=== PATIENT | female | born 1935 | race African-American/Black ===

== ENCOUNTER 2017-08-26 15:51 | Inpatient (IN) | payer MEDICARE, MEDICAID ==
[~2017-08-26] VITALS: Ht 157.5 cm; Wt 100.0 kg
[~2017-08-26 15:51] MED LIST: FERR325T35 PO; FURO-150 PO; HYDR50TA3 PO; INSU100V12 SQ; INSU100V37 SQ; METO50TA17 PO; POTA8TAB3 PO
[2017-08-26] MEDS: labetalol 20mg/4ml (5mg/ml) syringe IV ONE ×2 (16:40→17:57)
[2017-08-26] MEDS ORDERED: ipratropium/albuterol 3ml nebule NEB ONE (16:40)
[2017-08-26 17:09] LABS: BASOPHILS % (AUTO) 0.3 % (0-1); EOSINOPHILS # (AUTO) 0.2 X10'3 (0-0.9); EOSINOPHILS % (AUTO) 2.2 % (0-6); HEMATOCRIT 30.8 % (35.0-45.0); HEMOGLOBIN 9.9 g/dl (12.0-16.0); LYMPHOCYTES # (AUTO) 0.7 X10'3 (1.1-4.8); LYMPHOCYTES % (AUTO) 8.3 % (21-51); MEAN CORPUSCULAR HEMOGLOBIN 22.6 PG (27.0-31.0); MEAN CORPUSCULAR HGB CONC 32.1 % (33.0-36.5); MEAN CORPUSCULAR VOLUME 70.3 FL (78-98); MONOCYTES # (AUTO) 0.7 X10'3 (0-0.9); MONOCYTES % (AUTO) 7.7 % (2-12); NEUTROPHILS # (AUTO) 7.3 X10'3 (1.8-7.7); NEUTROPHILS % (AUTO) 81.5 % (42-75); PLATELET COUNT 359 X10'3 (140-440); RED BLOOD COUNT 4.39 X10'6 (4.20-5.60); RED CELL DISTRIBUTION WIDTH 19.3 % (11.5-14.5)
[2017-08-26 17:19] LABS: PARTIAL THROMBOPLASTIN TIME 33 SECONDS (22-32); PROTHROMBIN TIME 10.7 SECONDS (9.0-12.0)
[2017-08-26 17:36] LABS: ALANINE AMINOTRANSFERASE 40 U/L (12-78); ALBUMIN 2.7 G/DL (3.4-5.0); ALBUMIN/GLOBULIN RATIO 0.5 (1.1-1.5); ALKALINE PHOSPHATASE 137 IU/L (46-116); ANION GAP 9 (8-16); ASPARTATE AMINO TRANSFERASE 29 U/L (10-37); BILIRUBIN,TOTAL 0.7 MG/DL (0.1-1.0); BLOOD UREA NITROGEN 19 MG/DL (7-18); BUN/CREATININE RATIO 11.5 (6.6-38.0); CALCIUM 8.9 MG/DL (8.5-10.1); CHLORIDE 104 MMOL/L (99-107); CREATININE 1.65 MG/DL (0.40-0.90); GLUCOSE 104 MG/DL (70-104); POTASSIUM 4.1 MMOL/L (3.5-5.1); SODIUM 139 MMOL/L (135-145); TOTAL CARBON DIOXIDE 26.1 MMOL/L (24-32); TOTAL PROTEIN 8.3 G/DL (6.4-8.2); eGFR 36 ML/MIN
[2017-08-26] MEDS ORDERED: furosemide 10 MG/1 ML 10ml inj IV ONE (17:45)
[2017-08-26] MEDS: nitroGLYCERIN-Tridil 50MG/D5W 250 ML IV SCH (18:33)
[2017-08-26] MEDS ORDERED: enalaprilat dihydrate 2.5mg/2ml vial IV ONE (20:45)
[2017-08-26] MEDS ORDERED: acetaminophen 325mg tablet PO PRN (22:55)
[2017-08-26] MEDS ORDERED: magnesium hydroxide 30ml (MOM) UD suspension PO PRN (22:55)
[2017-08-26] MEDS ORDERED: dextrose 50%-water 50ml dispensing syringe IV PRN ×2 (22:55)
[2017-08-26] MEDS ORDERED: regadenoson 0.4mg/5ml syringe IV ONE (22:55)
[2017-08-26] MEDS ORDERED: dextrose ORAL solution 15 GM/59 ML bottle PO PRN ×2 (22:55)
[2017-08-26] MEDS ORDERED: ondansetron/PF 4mg/2ml inj IV PRN (22:55)
[2017-08-26] MEDS ORDERED: glucagon, human recombinant 1mg kit SUBCUT PRN (22:55)
[2017-08-26] MEDS ORDERED: MESSAGE TO PHARMACY PO ONE (22:55)
[2017-08-26] MEDS ORDERED: mag hydrox/Alum hydrox/simeth 30ml oral suspension PO PRN (22:55)
[2017-08-26] MEDS ORDERED: metoprolol tartrate 1mg/ml inj IV PRN (22:55)
[2017-08-26] MEDS ORDERED: nitroGLYCERIN 0.4mg SUBLingual tab SL PRN (22:55)
[2017-08-26] MEDS ORDERED: aminophylline 250mg/10ml inj. IV PRN (22:55)
[2017-08-26] MEDS ORDERED: heparin 10,000 units/1 ML INJ IV PRN (23:05)
[2017-08-26] MEDS ORDERED: heparin 10,000 units/1 ML INJ IV ONE (23:28)
[2017-08-26 23:43] LABS: BASOPHILS % (AUTO) 0.4 % (0-1); EOSINOPHILS # (AUTO) 0.3 X10'3 (0-0.9); EOSINOPHILS % (AUTO) 3.6 % (0-6); HEMATOCRIT 27.6 % (35.0-45.0); HEMOGLOBIN 8.9 g/dl (12.0-16.0); LYMPHOCYTES # (AUTO) 1.1 X10'3 (1.1-4.8); MEAN CORPUSCULAR HEMOGLOBIN 22.5 PG (27.0-31.0); MEAN CORPUSCULAR HGB CONC 32.5 % (33.0-36.5); MEAN CORPUSCULAR VOLUME 69.2 FL (78-98); MEAN PLATELET VOLUME 7.8 FL (7.4-10.4); MONOCYTES # (AUTO) 0.8 X10'3 (0-0.9); NEUTROPHILS # (AUTO) 6.2 X10'3 (1.8-7.7); PLATELET COUNT 359 X10'3 (140-440); RED BLOOD COUNT 3.99 X10'6 (4.20-5.60); RED CELL DISTRIBUTION WIDTH 18.8 % (11.5-14.5); WHITE BLOOD COUNT 8.4 X10'3 (4.5-11.0)
[2017-08-26 23:52] LABS: HEMOGLOBIN A1C 6.9 % (4.5-6.2)
[2017-08-26 23:53] LABS: INR 1.1 INR; PARTIAL THROMBOPLASTIN TIME 32 SECONDS (22-32)
[2017-08-27] VITALS (17 sets, daily range): BP systolic 141–216; BP diastolic 47–92
[2017-08-27 00:40] LABS: PLATELET ESTIMATE NORMAL
[2017-08-27 00:42] LABS: ANISOCYTOSIS 2+; HYPOCHROMASIA 1+; MICROCYTOSIS 2+
[2017-08-27 00:43] LABS: TARGET CELLS FEW
[2017-08-27 05:49] LABS: ALANINE AMINOTRANSFERASE 31 U/L (12-78); ALBUMIN 2.3 G/DL (3.4-5.0); ALBUMIN/GLOBULIN RATIO 0.5 (1.1-1.5); ALKALINE PHOSPHATASE 127 IU/L (46-116); ANION GAP 9 (8-16); ASPARTATE AMINO TRANSFERASE 27 U/L (10-37); BILIRUBIN,TOTAL 0.8 MG/DL (0.1-1.0); BLOOD UREA NITROGEN 20 MG/DL (7-18); BUN/CREATININE RATIO 10.9 (6.6-38.0); CALCIUM 8.6 MG/DL (8.5-10.1); CHLORIDE 106 MMOL/L (99-107); CHOL/HDL RATIO 2.7 (0.00-4.99); CHOLESTEROL 121 MG/DL (0-200); CREATININE 1.83 MG/DL (0.40-0.90); GLUCOSE 220 MG/DL (70-104); HDL CHOLESTEROL 45 MG/DL (35-60); LDL CHOLESTEROL 67 MG/DL (50-100); POTASSIUM 4.1 MMOL/L (3.5-5.1); SODIUM 141 MMOL/L (135-145); TOTAL PROTEIN 7.4 G/DL (6.4-8.2); TRIGLYCERIDES 50 MG/DL (20-135); eGFR 32 ML/MIN
[2017-08-27 05:55] LABS: BASOPHILS % (AUTO) 0.1 % (0-1); EOSINOPHILS # (AUTO) 0.2 X10'3 (0-0.9); EOSINOPHILS % (AUTO) 1.8 % (0-6); HEMATOCRIT 27.3 % (35.0-45.0); HEMOGLOBIN 8.8 g/dl (12.0-16.0); LYMPHOCYTES # (AUTO) 0.9 X10'3 (1.1-4.8); LYMPHOCYTES % (AUTO) 10.3 % (21-51); MEAN CORPUSCULAR HEMOGLOBIN 22.8 PG (27.0-31.0); MEAN CORPUSCULAR HGB CONC 32.3 % (33.0-36.5); MEAN CORPUSCULAR VOLUME 70.5 FL (78-98); MEAN PLATELET VOLUME 8.9 FL (7.4-10.4); MONOCYTES # (AUTO) 0.6 X10'3 (0-0.9); MONOCYTES % (AUTO) 6.3 % (2-12); NEUTROPHILS # (AUTO) 7.5 X10'3 (1.8-7.7); NEUTROPHILS % (AUTO) 81.5 % (42-75); PLATELET COUNT 334 X10'3 (140-440); RED BLOOD COUNT 3.87 X10'6 (4.20-5.60); RED CELL DISTRIBUTION WIDTH 17.6 % (11.5-14.5); WHITE BLOOD COUNT 9.2 X10'3 (4.5-11.0)
[2017-08-27] MEDS: nitroGLYCERIN-Tridil 50MG/D5W 250 ML IV SCH (07:13)
[2017-08-27] MEDS: hydrALAZINE 20mg/ml inj. IV PRN (07:31)
[2017-08-27] MEDS: ferrous sulfate 325mg tablet PO SCH (07:36)
[2017-08-27] MEDS: metoprolol tartrate 50mg tablet PO SCH (07:36)
[2017-08-27] MEDS ORDERED: HYDROchlorothiazide 25mg tablet PO SCH (08:00)
[2017-08-27] MEDS: insulin Lispro (HumaLOG) vial - multi-dose SQ SCH ×3 (09:25→19:08)
[2017-08-27] MEDS ORDERED: furosemide 10 MG/1 ML 10ml inj IV ONE (11:00)
[2017-08-27] MEDS ORDERED: cloNIDine 0.1 mg tablet PO ONE (11:00)
[2017-08-27 13:17] LABS: MAGNESIUM 1.7 MG/DL (1.5-2.4)
[2017-08-27 19:51] LABS: TROPONIN I 0.08 NG/ML (0.0-0.05)
[2017-08-27] MEDS: insulin glargine (Lantus) pen - multi-dose SQ SCH (21:45)
[2017-08-28] VITALS (19 sets, daily range): BP systolic 139–194; BP diastolic 47–96
[2017-08-28 02:36] LABS: BASOPHILS % (AUTO) 0.6 % (0-1); EOSINOPHILS # (AUTO) 0.2 X10'3 (0-0.9); EOSINOPHILS % (AUTO) 3.1 % (0-6); HEMATOCRIT 25.1 % (35.0-45.0); HEMOGLOBIN 8.1 g/dl (12.0-16.0); LYMPHOCYTES # (AUTO) 1.2 X10'3 (1.1-4.8); MEAN CORPUSCULAR HEMOGLOBIN 22.7 PG (27.0-31.0); MEAN CORPUSCULAR HGB CONC 32.3 % (33.0-36.5); MEAN CORPUSCULAR VOLUME 70.1 FL (78-98); MONOCYTES % (AUTO) 13.3 % (2-12); NEUTROPHILS # (AUTO) 4.9 X10'3 (1.8-7.7); PLATELET COUNT 325 X10'3 (140-440); RED BLOOD COUNT 3.58 X10'6 (4.20-5.60); RED CELL DISTRIBUTION WIDTH 19.4 % (11.5-14.5); WHITE BLOOD COUNT 7.3 X10'3 (4.5-11.0)
[2017-08-28 02:52] LABS: ALANINE AMINOTRANSFERASE 28 U/L (12-78); ALBUMIN/GLOBULIN RATIO 0.4 (1.1-1.5); ALKALINE PHOSPHATASE 109 IU/L (46-116); ANION GAP 8 (8-16); ASPARTATE AMINO TRANSFERASE 27 U/L (10-37); BILIRUBIN,TOTAL 0.7 MG/DL (0.1-1.0); BLOOD UREA NITROGEN 24 MG/DL (7-18); CALCIUM 8.5 MG/DL (8.5-10.1); CHLORIDE 107 MMOL/L (99-107); GLUCOSE 176 MG/DL (70-104); POTASSIUM 3.6 MMOL/L (3.5-5.1); SODIUM 143 MMOL/L (135-145); TOTAL CARBON DIOXIDE 28.3 MMOL/L (24-32); TOTAL PROTEIN 6.8 G/DL (6.4-8.2); eGFR 29 ML/MIN
[2017-08-28] MEDS: hydrALAZINE 20mg/ml inj. IV PRN ×2 (04:26→10:46)
[2017-08-28] MEDS: ferrous sulfate 325mg tablet PO SCH (07:22)
[2017-08-28] MEDS: metoprolol tartrate 50mg tablet PO SCH (07:22)
[2017-08-28] MEDS: pantoprazole 40mg Tablet.DR PO SCH (07:23)
[2017-08-28] MEDS: cloNIDine 0.1 mg tablet PO SCH ×3 (07:23→21:50)
[2017-08-28] MEDS: aspirin 81mg tab.chew PO SCH (08:46)
[2017-08-28] MEDS: insulin Lispro (HumaLOG) vial - multi-dose SQ SCH ×2 (08:49→20:38)
[2017-08-28] MEDS ORDERED: aminophylline inj. 10 ML IV ONE (10:04)
[2017-08-28] MEDS ORDERED: regadenoson 0.4mg/5ml syringe IV ONE (10:04)
[2017-08-28] MEDS: insulin glargine (Lantus) pen - multi-dose SQ SCH (21:50)
[2017-08-28] MEDS: furosemide 20 MG/2 ML vial IV SCH (21:51)
[2017-08-29 03:00] VITALS: BP 158/54
[2017-08-29 05:21] LABS: BASOPHILS % (AUTO) 0.3 % (0-1); EOSINOPHILS # (AUTO) 0.1 X10'3 (0-0.9); EOSINOPHILS % (AUTO) 1.9 % (0-6); HEMATOCRIT 24.8 % (35.0-45.0); HEMOGLOBIN 7.9 g/dl (12.0-16.0); LYMPHOCYTES # (AUTO) 0.8 X10'3 (1.1-4.8); LYMPHOCYTES % (AUTO) 10.7 % (21-51); MEAN CORPUSCULAR HEMOGLOBIN 22.3 PG (27.0-31.0); MEAN CORPUSCULAR VOLUME 69.7 FL (78-98); MEAN PLATELET VOLUME 8.1 FL (7.4-10.4); MONOCYTES % (AUTO) 13.3 % (2-12); NEUTROPHILS # (AUTO) 5.6 X10'3 (1.8-7.7); NEUTROPHILS % (AUTO) 73.8 % (42-75); PLATELET COUNT 296 X10'3 (140-440); RED BLOOD COUNT 3.55 X10'6 (4.20-5.60); WHITE BLOOD COUNT 7.5 X10'3 (4.5-11.0)
[2017-08-29 06:00] VITALS: BP 166/76
[2017-08-29 06:02] LABS: ALANINE AMINOTRANSFERASE 24 U/L (12-78); ALBUMIN 1.9 G/DL (3.4-5.0); ALBUMIN/GLOBULIN RATIO 0.4 (1.1-1.5); ALKALINE PHOSPHATASE 95 IU/L (46-116); ANION GAP 6 (8-16); ASPARTATE AMINO TRANSFERASE 17 U/L (10-37); BILIRUBIN,TOTAL 0.4 MG/DL (0.1-1.0); BLOOD UREA NITROGEN 28 MG/DL (7-18); BUN/CREATININE RATIO 13.5 (6.6-38.0); CALCIUM 8.3 MG/DL (8.5-10.1); CHLORIDE 107 MMOL/L (99-107); CREATININE 2.08 MG/DL (0.40-0.90); GLUCOSE 123 MG/DL (70-104); POTASSIUM 3.6 MMOL/L (3.5-5.1); SODIUM 142 MMOL/L (135-145); TOTAL CARBON DIOXIDE 28.9 MMOL/L (24-32); TOTAL PROTEIN 6.5 G/DL (6.4-8.2); eGFR 28 ML/MIN
[2017-08-29 06:50] LABS: PLATELET ESTIMATE NORMAL
[2017-08-29 06:51] LABS: ANISOCYTOSIS 2+; MICROCYTOSIS 2+; POIKILOCYTOSIS 1+; POLYCHROMASIA FEW; TARGET CELLS FEW
[2017-08-29] MEDS: nitroGLYCERIN 0.4mg/hour patch TD SCH (08:00)
[2017-08-29] MEDS: ferrous sulfate 325mg tablet PO SCH (08:27)
[2017-08-29] MEDS: metoprolol tartrate 50mg tablet PO SCH (08:27)
[2017-08-29] MEDS: cloNIDine 0.1 mg tablet PO SCH ×3 (08:29→20:53)
[2017-08-29] MEDS: pantoprazole 40mg Tablet.DR PO SCH (08:30)
[2017-08-29] MEDS: aspirin 81mg tab.chew PO SCH (08:30)
[2017-08-29] MEDS: furosemide 20 MG/2 ML vial IV SCH ×2 (08:31→19:24)
[2017-08-29] MEDS: insulin Lispro (HumaLOG) vial - multi-dose SQ SCH ×3 (08:40→19:24)
[2017-08-29 11:00] VITALS: BP 161/61
[2017-08-29 15:00] VITALS: BP 140/53
[2017-08-29 19:00] VITALS: BP 145/80
[2017-08-29] MEDS: insulin glargine (Lantus) pen - multi-dose SQ SCH (20:53)
[2017-08-29 23:00] VITALS: BP 156/66
[2017-08-30] VITALS (7 sets, daily range): BP systolic 149–187; BP diastolic 45–74
[2017-08-30 05:45] LABS: BASOPHILS % (AUTO) 0 % (0-1); EOSINOPHILS # (AUTO) 0.3 X10'3 (0-0.9); EOSINOPHILS % (AUTO) 3.6 % (0-6); HEMATOCRIT 25.8 % (35.0-45.0); HEMOGLOBIN 8.5 g/dl (12.0-16.0); LYMPHOCYTES # (AUTO) 1.3 X10'3 (1.1-4.8); LYMPHOCYTES % (AUTO) 16.4 % (21-51); MEAN CORPUSCULAR HEMOGLOBIN 22.7 PG (27.0-31.0); MEAN CORPUSCULAR HGB CONC 32.9 % (33.0-36.5); MONOCYTES # (AUTO) 0.8 X10'3 (0-0.9); MONOCYTES % (AUTO) 10.6 % (2-12); NEUTROPHILS # (AUTO) 5.4 X10'3 (1.8-7.7); NEUTROPHILS % (AUTO) 69.4 % (42-75); PLATELET COUNT 319 X10'3 (140-440); RED BLOOD COUNT 3.74 X10'6 (4.20-5.60); RED CELL DISTRIBUTION WIDTH 19.3 % (11.5-14.5); WHITE BLOOD COUNT 7.8 X10'3 (4.5-11.0)
[2017-08-30 05:49] LABS: ALANINE AMINOTRANSFERASE 21 U/L (12-78); ALBUMIN/GLOBULIN RATIO 0.4 (1.1-1.5); ALKALINE PHOSPHATASE 100 IU/L (46-116); ANION GAP 7 (8-16); ASPARTATE AMINO TRANSFERASE 15 U/L (10-37); BILIRUBIN,TOTAL 0.4 MG/DL (0.1-1.0); BLOOD UREA NITROGEN 32 MG/DL (7-18); CALCIUM 8.3 MG/DL (8.5-10.1); CHLORIDE 104 MMOL/L (99-107); CREATININE 2.13 MG/DL (0.40-0.90); GLUCOSE 134 MG/DL (70-104); POTASSIUM 3.8 MMOL/L (3.5-5.1); SODIUM 139 MMOL/L (135-145); TOTAL CARBON DIOXIDE 28.5 MMOL/L (24-32); eGFR 27 ML/MIN
[2017-08-30] MEDS: nitroGLYCERIN 0.4mg/hour patch TD SCH (08:00)
[2017-08-30] MEDS: aspirin 81mg tab.chew PO SCH (08:20)
[2017-08-30] MEDS: ferrous sulfate 325mg tablet PO SCH (08:20)
[2017-08-30] MEDS: cloNIDine 0.1 mg tablet PO SCH ×3 (08:21→20:25)
[2017-08-30] MEDS: metoprolol tartrate 50mg tablet PO SCH (08:21)
[2017-08-30] MEDS: pantoprazole 40mg Tablet.DR PO SCH (08:21)
[2017-08-30] MEDS: furosemide 20 MG/2 ML vial IV SCH ×2 (08:21→20:25)
[2017-08-30] MEDS: insulin Lispro (HumaLOG) vial - multi-dose SQ SCH ×3 (08:29→18:43)
[2017-08-30 11:56] LABS: ANISOCYTOSIS 2+; HYPOCHROMASIA 2+; MICROCYTOSIS 2+; PLATELET ESTIMATE NORMAL; POIKILOCYTOSIS 1+; POLYCHROMASIA FEW; TARGET CELLS FEW
[2017-08-30 11:57] LABS: SCHISTOCYTES FEW
[2017-08-30] MEDS: hydrALAZINE 20mg/ml inj. IV PRN (19:20)
[2017-08-30] MEDS: insulin glargine (Lantus) pen - multi-dose SQ SCH (20:36)
[2017-08-31 02:00] VITALS: BP_SYST 106; BP_SYST 181; BP_DIAS 50; BP_DIAS 55
[2017-08-31] MEDS: hydrALAZINE 20mg/ml inj. IV PRN (02:08)
[2017-08-31 04:30] VITALS: BP 160/65
[2017-08-31 06:00] VITALS: BP 189/61
[2017-08-31] MEDS: aspirin 81mg tab.chew PO SCH (07:16)
[2017-08-31] MEDS: pantoprazole 40mg Tablet.DR PO SCH (07:16)
[2017-08-31] MEDS: cloNIDine 0.1 mg tablet PO SCH ×2 (07:16→13:07)
[2017-08-31] MEDS: furosemide 20 MG/2 ML vial IV SCH (07:18)
[2017-08-31] MEDS: metoprolol tartrate 50mg tablet PO SCH (07:19)
[2017-08-31] MEDS: ferrous sulfate 325mg tablet PO SCH (07:22)
[2017-08-31] MEDS: nitroGLYCERIN 0.4mg/hour patch TD SCH (07:37)
[2017-08-31] MEDS ORDERED: albuterol 2.5 MG/3 ML nebule NEB PRN (09:20)
[2017-08-31] MEDS: insulin Lispro (HumaLOG) vial - multi-dose SQ SCH ×2 (09:34→13:12)
[2017-08-31 11:00] VITALS: BP 165/55
== END 2017-08-31 14:30 | DRG 291 ==
LOC: ER 15:51 → ED HOLD 22:53 → PCU 3S 08-27 00:36
PROVIDERS: ADMIT Family Medicine; ATTEND Family Medicine
PROC: 4A02XM4 Measurement of Cardiac Total Activity, External Approach (ICD-10-PCS; principal; 2017-08-28)
PROC: 3E073KZ Introduction of Other Diagnostic Substance into Coronary Artery, Percutaneous Approach (ICD-10-PCS; 2017-08-28)
DX: I11.0 Hypertensive heart disease with heart failure (principal); J96.01 Acute respiratory failure with hypoxia; I16.1 Hypertensive emergency; E11.9 Type 2 diabetes mellitus without complications; F03.90 Unspecified dementia, unspecified severity, without behavioral disturbance, psychotic disturbance, mood disturbance, and anxiety; I50.33 Acute on chronic diastolic (congestive) heart failure; I16.0 Hypertensive urgency; G89.29 Other chronic pain; M54.9 Dorsalgia, unspecified; R74.8 Abnormal levels of other serum enzymes; Z79.899 Other long term (current) drug therapy; Z79.4 Long term (current) use of insulin
CPT/HCPCS: 36415; 71045; 78452; 80053; 80061; 82948; 83036; 83690; 83735; 83880; 84484; 85025; 85610; 85730; 87070; 93005; 93017; 93306; 94640; 94760; 96374; 96375; 97116; 97162; 97530; 99285; A4315; A9500; J0280; J0360; J1644; J1815; J1940; J3490; J7030

== ENCOUNTER 2018-01-08 21:54 | Inpatient (IN) | payer MEDICARE, MEDICAID ==
[~2018-01-08] VITALS: Ht 160 cm; Wt 112.6 kg
[2018-01-08] MEDS ORDERED: methylPREDNISolone sod succ 125mg/2ml vial IV ONE (22:05)
[2018-01-08] MEDS ORDERED: furosemide 10 MG/1 ML 10ml inj IV ONE (22:05)
[2018-01-08 22:26] LABS: ABG BASE EXCESS -4.6 mmol/L (-2.0-3.0); ABG HCO3 22.1 mmol/L (22.0-26.0); ABG OXYGEN SATURATION 93.8 % (95-98); ABG PCO2 (T) 45.6 mmHg (32.0-45.0); ABG PH (T) 7.299 (7.350-7.450); ABG PO2 (T) 73.2 mmHg (83-108); ALLEN'S TEST Positive; FCOHb 0.4 % (0.5-1.5); FLOW 15 L/min; FMetHb 0.2 % (0.3-1.12); FO2Hb 93.2 % (94-100); RESPIRATORY RATE (OBSERVED) 20 b/min; TOTAL HEMOGLOBIN 11.5 G/dl (12.0-16.0)
[2018-01-08] MEDS ORDERED: FURO-150 PO (22:29)
[2018-01-08] MEDS ORDERED: LISI-600 PO (22:29)
[2018-01-08] MEDS ORDERED: METO50TA17 PO (22:29)
[2018-01-08] MEDS ORDERED: INSU100C10 SQ (22:29)
[2018-01-08 22:33] LABS: BASOPHILS % (AUTO) 0.1 % (0-1); EOSINOPHILS # (AUTO) 0.1 X10'3 (0-0.9); HEMATOCRIT 33.5 % (35.0-45.0); HEMOGLOBIN 10.7 g/dl (12.0-16.0); LYMPHOCYTES # (AUTO) 0.6 X10'3 (1.1-4.8); LYMPHOCYTES % (AUTO) 5.6 % (21-51); MEAN CORPUSCULAR HGB CONC 31.8 % (33.0-36.5); MEAN CORPUSCULAR VOLUME 75.6 FL (78-98); MONOCYTES # (AUTO) 0.4 X10'3 (0-0.9); MONOCYTES % (AUTO) 4.3 % (2-12); NEUTROPHILS # (AUTO) 8.8 X10'3 (1.8-7.7); PLATELET COUNT 422 X10'3 (140-440); RED BLOOD COUNT 4.44 X10'6 (4.20-5.60); RED CELL DISTRIBUTION WIDTH 19.4 % (11.5-14.5); WHITE BLOOD COUNT 9.9 X10'3 (4.5-11.0)
[2018-01-08 22:40] LABS: INR 1.1 INR; PROTHROMBIN TIME 11.4 SECONDS (9.0-12.0)
[2018-01-08] MEDS ORDERED: POTA10TA10 PO (22:40)
[2018-01-08] MEDS ORDERED: VANC250C4 PO (22:40)
[2018-01-08] MEDS ORDERED: CLON-529 PO (22:40)
[2018-01-08] MEDS ORDERED: POTA8CAP9 PO (22:40)
[2018-01-08] MEDS ORDERED: GLUC1KIT IM (22:41)
[2018-01-08] MEDS ORDERED: LORazepam 2 mg/ml vial ONE (22:44)
[2018-01-08] MEDS ORDERED: LORazepam 2 mg/ml vial IV ONE (22:45)
[2018-01-08 22:47] LABS: ALANINE AMINOTRANSFERASE 20 U/L (12-78); ALBUMIN 2.7 G/DL (3.4-5.0); ALBUMIN/GLOBULIN RATIO 0.4 (1.1-1.5); ALKALINE PHOSPHATASE 195 IU/L (46-116); ANION GAP 12 (8-16); ASPARTATE AMINO TRANSFERASE 24 U/L (10-37); BILIRUBIN,TOTAL 1.2 MG/DL (0.1-1.0); BLOOD UREA NITROGEN 28 MG/DL (7-18); BUN/CREATININE RATIO 16.8 (6.6-38.0); CALCIUM 9.4 MG/DL (8.5-10.1); CHLORIDE 100 MMOL/L (99-107); CREATININE 1.67 MG/DL (0.40-0.90); POTASSIUM 4.1 MMOL/L (3.5-5.1); SODIUM 136 MMOL/L (135-145); TOTAL CARBON DIOXIDE 24.5 MMOL/L (24-32); eGFR 30 ML/MIN
[2018-01-08 22:56] LABS: GLUCOSE 221 MG/DL (70-104)
[2018-01-08 23:18] LABS: CLARITY,URINE CLOUDY (Clear); COLOR,URINE YELLOW (Yellow); GLUCOSE, URINE NEGATIVE (Neg); KETONES,URINE TRACE mg/dl (Neg); LEUKOCYTE ESTERASE ,URINE NEGATIVE (Neg); NITRITES, URINE NEGATIVE (Neg); OCCULT BLOOD,URINE SMALL (Neg); PH,URINE 5.5 (4.8-8.0); PROTEIN,URINE >=300 mg/dl (Neg); UROBILINOGEN,URINE 0.2 E.U/dL (0.2-1.0)
[2018-01-08 23:21] LABS: UA COLLECTION TYPE FOLEY CATH
[2018-01-08 23:25] LABS: WBC,URINE 0-4 /HPF (0-4)
[2018-01-08 23:26] LABS: AMORPHOUS URATES 4+; BACTERIA,URINE FEW /HPF (Neg); SQUAMOUS EPITHELIAL CELL,UR MODERATE /LPF (FEW)
[2018-01-08 23:55] LABS: ANISOCYTOSIS 2+; TARGET CELLS 1+
[2018-01-08 23:56] LABS: BURR CELLS FEW; PLATELET ESTIMATE NORMAL; SCHISTOCYTES FEW
[2018-01-09] VITALS (15 sets, daily range): BP systolic 151–194; BP diastolic 57–95
[2018-01-09] MEDS ORDERED: potassium Cl 20 mEq SR tablet PO PRN ×2 (00:15)
[2018-01-09] MEDS: K, MAG and/or Phos replacement - Verify level? MC SCH ×2 (00:15→08:00)
[2018-01-09] MEDS ORDERED: ondansetron/PF 4mg/2ml inj IV PRN (00:15)
[2018-01-09] MEDS ORDERED: acetaminophen 325mg tablet PO PRN ×2 (00:15)
[2018-01-09] MEDS ORDERED: potassium Cl 40MEQ/NS 500ml 500 ML IV PRN ×2 (00:15)
[2018-01-09] MEDS ORDERED: morphine 2 MG/ML inj. syringe IV PRN (00:15)
[2018-01-09] MEDS ORDERED: morphine 4 MG/ML inj SYRINge IV PRN (00:15)
[2018-01-09] MEDS ORDERED: ipratropium/albuterol 3ml nebule NEB PRN (00:15)
[2018-01-09] MEDS ORDERED: magnesium hydroxide 30ml (MOM) UD suspension PO PRN (00:15)
[2018-01-09] MEDS ORDERED: CefTRIAXone 2gm/D5W 50ml 50 ML IV ONE (00:30)
[2018-01-09] MEDS ORDERED: levoFLOXACIN-Levaquin 500mg/D5 100 ML IV ONE (00:30)
[2018-01-09] MEDS: methylPREDNISolone sod succ/PF 40mg inj. IV SCH ×4 (02:20→20:54)
[2018-01-09] MEDS ORDERED: LORazepam 2 mg/ml vial IV PRN (03:15)
[2018-01-09] MEDS: CefTRIAXone 2gm/D5W 50ml 50 ML IV SCH (09:18)
[2018-01-09] MEDS: levoFLOXACIN-Levaquin 250mg/D5 50 ML IV SCH (09:18)
[2018-01-09] MEDS: enoxaparin 40mg/0.4ml syringe SUBCUT SCH (09:19)
[2018-01-09] MEDS ORDERED: dextrose 50%-water 50ml dispensing syringe IV PRN ×2 (11:05)
[2018-01-09] MEDS ORDERED: MESSAGE TO PHARMACY PO ONE (11:05)
[2018-01-09] MEDS ORDERED: glucagon, human recombinant 1mg kit SUBCUT PRN (11:05)
[2018-01-09] MEDS ORDERED: dextrose ORAL solution 15 GM/59 ML bottle PO PRN ×2 (11:05)
[2018-01-09] MEDS: insulin Lispro (HumaLOG) vial - multi-dose SQ SCH ×3 (14:12→21:03)
[2018-01-09] MEDS ORDERED: cloNIDine 0.1 mg tablet PO PRN (20:15)
[2018-01-09] MEDS ORDERED: metoprolol tartrate 50mg tablet PO ONE (20:45)
[2018-01-09] MEDS: lactobacillus rhamnosus 10,000 MMU CELLS/CAPSULE PO SCH (20:54)
[2018-01-09] MEDS: insulin glargine (Lantus) pen - multi-dose SQ SCH (21:04)
[2018-01-10] VITALS (20 sets, daily range): BP systolic 135–164; BP diastolic 58–78
[2018-01-10] MEDS: methylPREDNISolone sod succ/PF 40mg inj. IV SCH ×4 (02:29→20:36)
[2018-01-10] MEDS ORDERED: lisinopril 20mg tablet PO SCH (08:00)
[2018-01-10] MEDS: K, MAG and/or Phos replacement - Verify level? MC SCH (08:00)
[2018-01-10] MEDS ORDERED: metoprolol tartrate 50mg tablet PO SCH (08:00)
[2018-01-10] MEDS: levoFLOXACIN-Levaquin 250mg/D5 50 ML IV SCH (08:17)
[2018-01-10] MEDS: enoxaparin 40mg/0.4ml syringe SUBCUT SCH (08:17)
[2018-01-10] MEDS: lactobacillus rhamnosus 10,000 MMU CELLS/CAPSULE PO SCH ×2 (08:17→20:36)
[2018-01-10] MEDS: CefTRIAXone 2gm/D5W 50ml 50 ML IV SCH (08:17)
[2018-01-10] MEDS: furosemide 40mg tablet PO SCH (08:18)
[2018-01-10 09:14] LABS: BASOPHILS % (AUTO) 0 % (0-1); EOSINOPHILS % (AUTO) 0 % (0-6); HEMATOCRIT 30.3 % (35.0-45.0); HEMOGLOBIN 9.8 g/dl (12.0-16.0); LYMPHOCYTES # (AUTO) 0.4 X10'3 (1.1-4.8); LYMPHOCYTES % (AUTO) 3.8 % (21-51); MEAN CORPUSCULAR HEMOGLOBIN 24.2 PG (27.0-31.0); MEAN CORPUSCULAR HGB CONC 32.2 % (33.0-36.5); MEAN CORPUSCULAR VOLUME 75.2 FL (78-98); MEAN PLATELET VOLUME 8.2 FL (7.4-10.4); MONOCYTES # (AUTO) 0.2 X10'3 (0-0.9); NEUTROPHILS # (AUTO) 10.1 X10'3 (1.8-7.7); NEUTROPHILS % (AUTO) 94.2 % (42-75); PLATELET COUNT 410 X10'3 (140-440); RED BLOOD COUNT 4.02 X10'6 (4.20-5.60); RED CELL DISTRIBUTION WIDTH 17.9 % (11.5-14.5); WHITE BLOOD COUNT 10.7 X10'3 (4.5-11.0)
[2018-01-10 09:21] LABS: ALANINE AMINOTRANSFERASE 13 U/L (12-78); ALBUMIN 2.2 G/DL (3.4-5.0); ALBUMIN/GLOBULIN RATIO 0.4 (1.1-1.5); ALKALINE PHOSPHATASE 146 IU/L (46-116); ANION GAP 8 (8-16); ASPARTATE AMINO TRANSFERASE 14 U/L (10-37); BILIRUBIN,TOTAL 0.4 MG/DL (0.1-1.0); BLOOD UREA NITROGEN 43 MG/DL (7-18); BUN/CREATININE RATIO 18.1 (6.6-38.0); CALCIUM 9.3 MG/DL (8.5-10.1); CHLORIDE 102 MMOL/L (99-107); CREATININE 2.38 MG/DL (0.40-0.90); GLUCOSE 145 MG/DL (70-104); MAGNESIUM 2.3 MG/DL (1.5-2.4); PHOSPHORUS 4.1 MG/DL (2.3-4.5); POTASSIUM 4.6 MMOL/L (3.5-5.1); SODIUM 137 MMOL/L (135-145); TOTAL CARBON DIOXIDE 27.3 MMOL/L (24-32); TOTAL PROTEIN 7.6 G/DL (6.4-8.2); eGFR 24 ML/MIN
[2018-01-10] MEDS: insulin Lispro (HumaLOG) vial - multi-dose SQ SCH ×3 (09:46→19:12)
[2018-01-10] MEDS ORDERED: cloNIDine 0.1 mg tablet PO PRN (13:45)
[2018-01-10] MEDS: metoprolol tartrate 50mg tablet PO SCH (20:36)
[2018-01-10] MEDS: insulin glargine (Lantus) pen - multi-dose SQ SCH (20:44)
[2018-01-10] MEDS: vancomycin 125mg/5ml ORAL solution 5ml UD bottle PO SCH (21:00)
[2018-01-11] MEDS: methylPREDNISolone sod succ/PF 40mg inj. IV SCH ×4 (02:30→20:29)
[2018-01-11 03:00] VITALS: BP 162/76
[2018-01-11 06:00] VITALS: BP 163/83
[2018-01-11 07:55] LABS: BASOPHILS % (AUTO) 0 % (0-1); EOSINOPHILS % (AUTO) 0 % (0-6); HEMATOCRIT 26.7 % (35.0-45.0); HEMOGLOBIN 8.4 g/dl (12.0-16.0); LYMPHOCYTES # (AUTO) 0.3 X10'3 (1.1-4.8); LYMPHOCYTES % (AUTO) 3.8 % (21-51); MEAN CORPUSCULAR HEMOGLOBIN 24.3 PG (27.0-31.0); MEAN CORPUSCULAR HGB CONC 31.4 % (33.0-36.5); MEAN CORPUSCULAR VOLUME 77.2 FL (78-98); MEAN PLATELET VOLUME 9.6 FL (7.4-10.4); MONOCYTES % (AUTO) 0.4 % (2-12); NEUTROPHILS # (AUTO) 8.5 X10'3 (1.8-7.7); NEUTROPHILS % (AUTO) 95.8 % (42-75); PLATELET COUNT 317 X10'3 (140-440); RED BLOOD COUNT 3.45 X10'6 (4.20-5.60); RED CELL DISTRIBUTION WIDTH 20.5 % (11.5-14.5); WHITE BLOOD COUNT 8.9 X10'3 (4.5-11.0)
[2018-01-11] MEDS: K, MAG and/or Phos replacement - Verify level? MC SCH (08:00)
[2018-01-11 09:01] LABS: ANISOCYTOSIS 3+; LARGE PLATELETS FEW; PLATELET ESTIMATE NORMAL
[2018-01-11 09:03] LABS: HYPOCHROMASIA 1+; MICROCYTOSIS 1+
[2018-01-11 09:15] LABS: ANION GAP 11 (8-16); BILIRUBIN,TOTAL 0.3 MG/DL (0.1-1.0); BLOOD UREA NITROGEN 50 MG/DL (7-18); BUN/CREATININE RATIO 18.8 (6.6-38.0); CALCIUM 8.6 MG/DL (8.5-10.1); CHLORIDE 102 MMOL/L (99-107); CREATININE 2.66 MG/DL (0.40-0.90); GLUCOSE 205 MG/DL (70-104); MAGNESIUM 2.2 MG/DL (1.5-2.4); PHOSPHORUS 4.1 MG/DL (2.3-4.5); POTASSIUM 4.5 MMOL/L (3.5-5.1); SODIUM 138 MMOL/L (135-145); TOTAL CARBON DIOXIDE 24.6 MMOL/L (24-32); TOTAL PROTEIN 7.5 G/DL (6.4-8.2); eGFR 21 ML/MIN
[2018-01-11 09:16] LABS: ALANINE AMINOTRANSFERASE 26 U/L (12-78); ALBUMIN 2.1 G/DL (3.4-5.0); ALBUMIN/GLOBULIN RATIO 0.4 (1.1-1.5); ALKALINE PHOSPHATASE 138 IU/L (46-116); ASPARTATE AMINO TRANSFERASE 30 U/L (10-37)
[2018-01-11] MEDS: insulin Lispro (HumaLOG) vial - multi-dose SQ SCH ×3 (09:37→18:41)
[2018-01-11] MEDS: CefTRIAXone 2gm/D5W 50ml 50 ML IV SCH (09:41)
[2018-01-11] MEDS: lisinopril 20mg tablet PO SCH (09:43)
[2018-01-11] MEDS: metoprolol tartrate 50mg tablet PO SCH ×2 (09:43→20:29)
[2018-01-11] MEDS: lactobacillus rhamnosus 10,000 MMU CELLS/CAPSULE PO SCH ×2 (09:43→20:29)
[2018-01-11] MEDS: enoxaparin 40mg/0.4ml syringe SUBCUT SCH (09:44)
[2018-01-11] MEDS: vancomycin 125mg/5ml ORAL solution 5ml UD bottle PO SCH ×3 (10:12→20:30)
[2018-01-11 11:00] VITALS: BP 151/57
[2018-01-11] MEDS: levoFLOXACIN 250mg tablet PO SCH (11:38)
[2018-01-11 15:00] VITALS: BP 174/75
[2018-01-11 19:00] VITALS: BP 174/66
[2018-01-11] MEDS: insulin glargine (Lantus) pen - multi-dose SQ SCH (20:38)
[2018-01-11 23:00] VITALS: BP 165/71
[2018-01-12] MEDS: methylPREDNISolone sod succ/PF 40mg inj. IV SCH ×4 (02:00→20:29)
[2018-01-12 03:00] VITALS: BP 148/58
[2018-01-12 06:00] VITALS: BP 160/61
[2018-01-12 07:12] LABS: HEMATOCRIT 26.7 % (35.0-45.0); HEMOGLOBIN 8.6 g/dl (12.0-16.0); MEAN CORPUSCULAR HGB CONC 32.1 % (33.0-36.5); MEAN CORPUSCULAR VOLUME 74.8 FL (78-98); MEAN PLATELET VOLUME 8.3 FL (7.4-10.4); PLATELET COUNT 286 X10'3 (140-440); RED BLOOD COUNT 3.57 X10'6 (4.20-5.60); RED CELL DISTRIBUTION WIDTH 19.1 % (11.5-14.5)
[2018-01-12 07:34] LABS: ANISOCYTOSIS 2+; HYPOCHROMASIA 1+; LARGE PLATELETS FEW; MICROCYTOSIS 2+; PLATELET ESTIMATE NORMAL; TARGET CELLS 1+; TOTAL CELLS COUNTED 100
[2018-01-12] MEDS: K, MAG and/or Phos replacement - Verify level? MC SCH (08:00)
[2018-01-12 08:48] LABS: ALANINE AMINOTRANSFERASE 38 U/L (12-78); ALBUMIN 1.9 G/DL (3.4-5.0); ALBUMIN/GLOBULIN RATIO 0.4 (1.1-1.5); ALKALINE PHOSPHATASE 122 IU/L (46-116); ANION GAP 7 (8-16); ASPARTATE AMINO TRANSFERASE 42 U/L (10-37); BILIRUBIN,TOTAL 0.3 MG/DL (0.1-1.0); BLOOD UREA NITROGEN 54 MG/DL (7-18); BUN/CREATININE RATIO 21.7 (6.6-38.0); CALCIUM 8.1 MG/DL (8.5-10.1); CHLORIDE 106 MMOL/L (99-107); CREATININE 2.49 MG/DL (0.40-0.90); GLUCOSE 101 MG/DL (70-104); MAGNESIUM 2.1 MG/DL (1.5-2.4); PHOSPHORUS 3.7 MG/DL (2.3-4.5); SODIUM 139 MMOL/L (135-145); TOTAL CARBON DIOXIDE 25.7 MMOL/L (24-32); TOTAL PROTEIN 6.9 G/DL (6.4-8.2); eGFR 23 ML/MIN
[2018-01-12] MEDS: insulin Lispro (HumaLOG) vial - multi-dose SQ SCH ×3 (08:57→19:19)
[2018-01-12] MEDS: lactobacillus rhamnosus 10,000 MMU CELLS/CAPSULE PO SCH ×2 (09:03→20:29)
[2018-01-12] MEDS: lisinopril 20mg tablet PO SCH (09:04)
[2018-01-12] MEDS: furosemide 40mg tablet PO SCH (09:05)
[2018-01-12] MEDS: enoxaparin 40mg/0.4ml syringe SUBCUT SCH (09:06)
[2018-01-12] MEDS: CefTRIAXone 2gm/D5W 50ml 50 ML IV SCH (09:06)
[2018-01-12] MEDS: vancomycin 125mg/5ml ORAL solution 5ml UD bottle PO SCH ×3 (09:07→20:29)
[2018-01-12] MEDS: metoprolol tartrate 50mg tablet PO SCH ×2 (09:07→20:29)
[2018-01-12 11:00] VITALS: BP 161/59
[2018-01-12] MEDS: levoFLOXACIN 250mg tablet PO SCH (11:06)
[2018-01-12 15:00] VITALS: BP 178/74
[2018-01-12 19:00] VITALS: BP 159/64
[2018-01-12] MEDS: insulin glargine (Lantus) pen - multi-dose SQ SCH (20:41)
[2018-01-12 23:00] VITALS: BP 163/63
[2018-01-13] MEDS: methylPREDNISolone sod succ/PF 40mg inj. IV SCH ×4 (02:14→20:58)
[2018-01-13 03:00] VITALS: BP 149/56
[2018-01-13 05:58] LABS: BASOPHILS # (AUTO) 0.1 X10'3 (0-0.2); EOSINOPHILS % (AUTO) 0.1 % (0-6); HEMATOCRIT 32.2 % (35.0-45.0); HEMOGLOBIN 10.4 g/dl (12.0-16.0); LYMPHOCYTES # (AUTO) 0.9 X10'3 (1.1-4.8); LYMPHOCYTES % (AUTO) 10.9 % (21-51); MEAN CORPUSCULAR HGB CONC 32.2 % (33.0-36.5); MEAN CORPUSCULAR VOLUME 74.6 FL (78-98); MEAN PLATELET VOLUME 8.9 FL (7.4-10.4); MONOCYTES # (AUTO) 0.1 X10'3 (0-0.9); MONOCYTES % (AUTO) 1.1 % (2-12); NEUTROPHILS # (AUTO) 7.3 X10'3 (1.8-7.7); NEUTROPHILS % (AUTO) 86.9 % (42-75); PLATELET COUNT 370 X10'3 (140-440); RED BLOOD COUNT 4.32 X10'6 (4.20-5.60); WHITE BLOOD COUNT 8.4 X10'3 (4.5-11.0)
[2018-01-13 06:00] VITALS: BP 159/58
[2018-01-13 06:35] LABS: ALANINE AMINOTRANSFERASE 58 U/L (12-78); ALBUMIN 1.8 G/DL (3.4-5.0); ALBUMIN/GLOBULIN RATIO 0.4 (1.1-1.5); ALKALINE PHOSPHATASE 122 IU/L (46-116); ANION GAP 8 (8-16); ASPARTATE AMINO TRANSFERASE 61 U/L (10-37); BILIRUBIN,TOTAL 0.3 MG/DL (0.1-1.0); BLOOD UREA NITROGEN 63 MG/DL (7-18); BUN/CREATININE RATIO 24.6 (6.6-38.0); CALCIUM 8.3 MG/DL (8.5-10.1); CHLORIDE 104 MMOL/L (99-107); CREATININE 2.56 MG/DL (0.40-0.90); GLUCOSE 121 MG/DL (70-104); MAGNESIUM 2.3 MG/DL (1.5-2.4); PHOSPHORUS 4.4 MG/DL (2.3-4.5); POTASSIUM 4.6 MMOL/L (3.5-5.1); SODIUM 138 MMOL/L (135-145); TOTAL CARBON DIOXIDE 25.8 MMOL/L (24-32); TOTAL PROTEIN 6.7 G/DL (6.4-8.2); eGFR 22 ML/MIN
[2018-01-13] MEDS: K, MAG and/or Phos replacement - Verify level? MC SCH (08:00)
[2018-01-13] MEDS: vancomycin 125mg/5ml ORAL solution 5ml UD bottle PO SCH ×3 (08:16→20:57)
[2018-01-13] MEDS: metoprolol tartrate 50mg tablet PO SCH ×2 (08:16→20:58)
[2018-01-13] MEDS: lactobacillus rhamnosus 10,000 MMU CELLS/CAPSULE PO SCH ×2 (08:17→20:58)
[2018-01-13] MEDS: furosemide 40mg tablet PO SCH (08:17)
[2018-01-13] MEDS: lisinopril 20mg tablet PO SCH (08:17)
[2018-01-13] MEDS: enoxaparin 30mg/0.3ml syringe SUBCUT SCH (08:18)
[2018-01-13] MEDS: insulin Lispro (HumaLOG) vial - multi-dose SQ SCH ×3 (08:25→19:49)
[2018-01-13 11:00] VITALS: BP 174/62
[2018-01-13 15:00] VITALS: BP 186/60
[2018-01-13 19:00] VITALS: BP 160/83
[2018-01-13] MEDS: insulin glargine (Lantus) pen - multi-dose SQ SCH (21:08)
[2018-01-13 23:00] VITALS: BP 153/60
[2018-01-14] MEDS: methylPREDNISolone sod succ/PF 40mg inj. IV SCH ×3 (02:43→20:58)
[2018-01-14 03:00] VITALS: BP 151/60
[2018-01-14 06:00] VITALS: BP 153/63
[2018-01-14] MEDS: metoprolol tartrate 50mg tablet PO SCH ×2 (08:00→20:58)
[2018-01-14] MEDS: K, MAG and/or Phos replacement - Verify level? MC SCH (08:00)
[2018-01-14] MEDS: furosemide 40mg tablet PO SCH (08:07)
[2018-01-14] MEDS: lisinopril 20mg tablet PO SCH (08:07)
[2018-01-14] MEDS: lactobacillus rhamnosus 10,000 MMU CELLS/CAPSULE PO SCH ×2 (08:07→20:58)
[2018-01-14] MEDS: vancomycin 125mg/5ml ORAL solution 5ml UD bottle PO SCH (08:07)
[2018-01-14] MEDS: enoxaparin 30mg/0.3ml syringe SUBCUT SCH (08:08)
[2018-01-14] MEDS: insulin Lispro (HumaLOG) vial - multi-dose SQ SCH ×3 (08:16→18:39)
[2018-01-14 11:00] VITALS: BP 153/56
[2018-01-14 15:00] VITALS: BP 169/44
[2018-01-14 15:02] LABS: ALANINE AMINOTRANSFERASE 115 U/L (12-78); ALBUMIN 1.8 G/DL (3.4-5.0); ALBUMIN/GLOBULIN RATIO 0.4 (1.1-1.5); ALKALINE PHOSPHATASE 119 IU/L (46-116); ANION GAP 8 (8-16); ASPARTATE AMINO TRANSFERASE 119 U/L (10-37); BILIRUBIN,TOTAL 0.2 MG/DL (0.1-1.0); BLOOD UREA NITROGEN 67 MG/DL (7-18); CALCIUM 7.9 MG/DL (8.5-10.1); CHLORIDE 102 MMOL/L (99-107); CREATININE 2.31 MG/DL (0.40-0.90); GLUCOSE 173 MG/DL (70-104); MAGNESIUM 2.1 MG/DL (1.5-2.4); PHOSPHORUS 4.3 MG/DL (2.3-4.5); POTASSIUM 4.6 MMOL/L (3.5-5.1); SODIUM 138 MMOL/L (135-145); TOTAL CARBON DIOXIDE 28.5 MMOL/L (24-32); TOTAL PROTEIN 6.7 G/DL (6.4-8.2); eGFR 25 ML/MIN
[2018-01-14 15:08] LABS: HEMATOCRIT 35.6 % (35.0-45.0); MEAN CORPUSCULAR HEMOGLOBIN 23.5 PG (27.0-31.0); MEAN CORPUSCULAR HGB CONC 30.8 % (33.0-36.5); MEAN CORPUSCULAR VOLUME 76.4 FL (78-98); PLATELET COUNT 381 X10'3 (140-440); RED BLOOD COUNT 4.66 X10'6 (4.20-5.60); RED CELL DISTRIBUTION WIDTH 18.1 % (11.5-14.5); WHITE BLOOD COUNT 8.7 X10'3 (4.5-11.0)
[2018-01-14 15:52] LABS: ANISOCYTOSIS 2+; PLATELET ESTIMATE NORMAL; TOTAL CELLS COUNTED 100
[2018-01-14 19:00] VITALS: BP_SYST 168; BP_SYST 178; BP_DIAS 70
[2018-01-14] MEDS: insulin glargine (Lantus) pen - multi-dose SQ SCH (22:00)
[2018-01-14 23:00] VITALS: BP 155/59
[2018-01-15 03:00] VITALS: BP 181/67
[2018-01-15] MEDS: lisinopril 20mg tablet PO SCH (04:04)
[2018-01-15] MEDS: metoprolol tartrate 50mg tablet PO SCH (04:04)
[2018-01-15 04:56] LABS: BASOPHILS % (AUTO) 0 % (0-1); EOSINOPHILS # (AUTO) 0.1 X10'3 (0-0.9); EOSINOPHILS % (AUTO) 1.2 % (0-6); HEMATOCRIT 33.7 % (35.0-45.0); HEMOGLOBIN 10.7 g/dl (12.0-16.0); LYMPHOCYTES # (AUTO) 0.3 X10'3 (1.1-4.8); LYMPHOCYTES % (AUTO) 3.6 % (21-51); MEAN CORPUSCULAR HEMOGLOBIN 23.8 PG (27.0-31.0); MEAN CORPUSCULAR HGB CONC 31.8 % (33.0-36.5); MEAN CORPUSCULAR VOLUME 74.9 FL (78-98); MEAN PLATELET VOLUME 9.2 FL (7.4-10.4); MONOCYTES # (AUTO) 0.1 X10'3 (0-0.9); MONOCYTES % (AUTO) 1.6 % (2-12); NEUTROPHILS # (AUTO) 8.8 X10'3 (1.8-7.7); NEUTROPHILS % (AUTO) 93.6 % (42-75); PLATELET COUNT 306 X10'3 (140-440); RED CELL DISTRIBUTION WIDTH 19.8 % (11.5-14.5); WHITE BLOOD COUNT 9.4 X10'3 (4.5-11.0)
[2018-01-15 06:00] VITALS: BP 183/60
[2018-01-15] MEDS: enoxaparin 30mg/0.3ml syringe SUBCUT SCH (07:32)
[2018-01-15] MEDS: furosemide 40mg tablet PO SCH (07:32)
[2018-01-15] MEDS: lactobacillus rhamnosus 10,000 MMU CELLS/CAPSULE PO SCH (07:32)
[2018-01-15] MEDS: methylPREDNISolone sod succ/PF 40mg inj. IV SCH (07:33)
[2018-01-15] MEDS: K, MAG and/or Phos replacement - Verify level? MC SCH (08:00)
[2018-01-15] MEDS: insulin Lispro (HumaLOG) vial - multi-dose SQ SCH (08:55)
[2018-01-15 08:57] LABS: ALANINE AMINOTRANSFERASE 124 U/L (12-78); ALBUMIN 1.7 G/DL (3.4-5.0); ALBUMIN/GLOBULIN RATIO 0.4 (1.1-1.5); ALKALINE PHOSPHATASE 108 IU/L (46-116); ANION GAP 5 (8-16); BILIRUBIN,TOTAL 0.3 MG/DL (0.1-1.0); BLOOD UREA NITROGEN 69 MG/DL (7-18); BUN/CREATININE RATIO 34.3 (6.6-38.0); CALCIUM 7.8 MG/DL (8.5-10.1); CHLORIDE 105 MMOL/L (99-107); CREATININE 2.01 MG/DL (0.40-0.90); GLUCOSE 84 MG/DL (70-104); MAGNESIUM 2.1 MG/DL (1.5-2.4); SODIUM 137 MMOL/L (135-145); TOTAL CARBON DIOXIDE 27.5 MMOL/L (24-32); TOTAL PROTEIN 6.1 G/DL (6.4-8.2); eGFR 29 ML/MIN
[2018-01-15 09:06] LABS: ASPARTATE AMINO TRANSFERASE 105 U/L (10-37); PHOSPHORUS 4.4 MG/DL (2.3-4.5); POTASSIUM 4.3 MMOL/L (3.5-5.1)
[2018-01-15 11:00] VITALS: BP 189/63
[2018-01-15] MEDS ORDERED: hydrALAZINE 20mg/ml inj. IV ONE (12:50)
== END 2018-01-15 15:09 | DRG 291 ==
LOC: ER 21:54 → ED HOLD 01-09 00:15 → EDBEDREQ 01-09 06:34 → CICU 2S 01-09 06:54 → PCU 3S 01-10 16:20
PROVIDERS: ATTEND Family Medicine
PROC: 5A09357 Assistance with Respiratory Ventilation, Less than 24 Consecutive Hours, Continuous Positive Airway Pressure (ICD-10-PCS; principal; 2018-01-09)
PROC: 5A09357 Assistance with Respiratory Ventilation, Less than 24 Consecutive Hours, Continuous Positive Airway Pressure (ICD-10-PCS; 2018-01-10)
PROC: 5A09357 Assistance with Respiratory Ventilation, Less than 24 Consecutive Hours, Continuous Positive Airway Pressure (ICD-10-PCS; 2018-01-11)
PROC: 5A09357 Assistance with Respiratory Ventilation, Less than 24 Consecutive Hours, Continuous Positive Airway Pressure (ICD-10-PCS; 2018-01-12)
DX: I13.0 Hypertensive heart and chronic kidney disease with heart failure and stage 1 through stage 4 chronic kidney disease, or unspecified chronic kidney disease (principal); I50.43 Acute on chronic combined systolic (congestive) and diastolic (congestive) heart failure; J96.20 Acute and chronic respiratory failure, unspecified whether with hypoxia or hypercapnia; J44.1 Chronic obstructive pulmonary disease with (acute) exacerbation; Z68.41 Body mass index [BMI] 40.0-44.9, adult; N17.9 Acute kidney failure, unspecified; G89.29 Other chronic pain; M54.9 Dorsalgia, unspecified; N18.9 Chronic kidney disease, unspecified; D64.9 Anemia, unspecified; E11.22 Type 2 diabetes mellitus with diabetic chronic kidney disease; G47.30 Sleep apnea, unspecified; Z99.81 Dependence on supplemental oxygen; Z79.4 Long term (current) use of insulin; Z79.899 Other long term (current) drug therapy
CPT/HCPCS: 36415; 36600; 71045; 80053; 81001; 82553; 82803; 82948; 83036; 83735; 83880; 84100; 84484; 85018; 85025; 85379; 85610; 87070; 93005; 94660; 94760; 96374; 96375; 97110; 97116; 97161; 99291; 99292; A6213; C1758; J0360; J0696; J1650; J1815; J1940; J1956; J2060; J2920; J2930; J7030

== ENCOUNTER 2018-03-11 12:44 | Inpatient (IN) | payer MEDICARE, MEDICAID ==
[~2018-03-11] VITALS: Ht 157.5 cm; Wt 92.1 kg
[~2018-03-11 12:44] MED LIST changes: +CLON-529 PO; -FERR325T35 PO; +GLUC1KIT IM; -HYDR50TA3 PO; +INSU100C10 SQ; -INSU100V12 SQ; -INSU100V37 SQ; +LISI-600 PO; +POTA10TA10 PO; +POTA8CAP9 PO; -POTA8TAB3 PO; +VANC250C4 PO
[2018-03-11] MEDS ORDERED: normal saline 1000ML IV soln IVB ONE (12:55)
[2018-03-11 14:17] LABS: CLARITY,URINE CLOUDY (Clear); COLOR,URINE YELLOW (Yellow); GLUCOSE, URINE NEGATIVE (Neg); KETONES,URINE NEGATIVE (Neg); LEUKOCYTE ESTERASE ,URINE NEGATIVE (Neg); NITRITES, URINE NEGATIVE (Neg); OCCULT BLOOD,URINE NEGATIVE (Neg); PROTEIN,URINE NEGATIVE (Neg); UA COLLECTION TYPE STRAIGHT CATH; UROBILINOGEN,URINE 0.2 E.U/dL (0.2-1.0)
[2018-03-11 14:25] LABS: HYALINE CASTS 0-3 /LPF (NEGATIVE); MUCUS STRANDS NONE SEEN /LPF (Neg); SQUAMOUS EPITHELIAL CELL,UR MANY /LPF (FEW)
[2018-03-11 14:26] LABS: AMORPHOUS URATES 3+; BACTERIA,URINE NONE SEEN /HPF (Neg); RBC,URINE NONE SEEN /HPF (0-2); WBC,URINE 0-4 /HPF (0-4)
[2018-03-11 15:13] LABS: BASOPHILS % (AUTO) 0 % (0-1); EOSINOPHILS # (AUTO) 0.1 X10'3 (0-0.9); EOSINOPHILS % (AUTO) 0.7 % (0-6); HEMATOCRIT 28.6 % (35.0-45.0); LYMPHOCYTES # (AUTO) 0.8 X10'3 (1.1-4.8); LYMPHOCYTES % (AUTO) 4.4 % (21-51); MEAN CORPUSCULAR HEMOGLOBIN 22.8 PG (27.0-31.0); MEAN CORPUSCULAR HGB CONC 31.5 % (33.0-36.5); MEAN CORPUSCULAR VOLUME 72.4 FL (78-98); MONOCYTES # (AUTO) 0.6 X10'3 (0-0.9); MONOCYTES % (AUTO) 3.3 % (2-12); NEUTROPHILS # (AUTO) 16.5 X10'3 (1.8-7.7); NEUTROPHILS % (AUTO) 91.6 % (42-75); PLATELET COUNT 274 X10'3 (140-440); RED BLOOD COUNT 3.96 X10'6 (4.20-5.60); RED CELL DISTRIBUTION WIDTH 22.1 % (11.5-14.5)
[2018-03-11] MEDS ORDERED: vancomycin/NS 1 GM ADD-VANTAGE 250 ML IV ONE (15:20)
[2018-03-11 15:27] LABS: ALANINE AMINOTRANSFERASE 17 U/L (12-78); ALBUMIN 1.6 G/DL (3.4-5.0); ALBUMIN/GLOBULIN RATIO 0.4 (1.1-1.5); ALKALINE PHOSPHATASE 126 IU/L (46-116); ANION GAP 10 (8-16); ASPARTATE AMINO TRANSFERASE 21 U/L (10-37); BILIRUBIN,TOTAL 0.5 MG/DL (0.1-1.0); BLOOD UREA NITROGEN 85 MG/DL (7-18); BUN/CREATININE RATIO 32.8 (6.6-38.0); CALCIUM 7.8 MG/DL (8.5-10.1); CHLORIDE 102 MMOL/L (99-107); CREATININE 2.59 MG/DL (0.40-0.90); GLUCOSE 222 MG/DL (70-104); POTASSIUM 5.2 MMOL/L (3.5-5.1); SODIUM 137 MMOL/L (135-145); TOTAL CARBON DIOXIDE 25.2 MMOL/L (24-32); TOTAL PROTEIN 5.3 G/DL (6.4-8.2); eGFR 22 ML/MIN
[2018-03-11 15:32] LABS: ANISOCYTOSIS 3+; PLATELET ESTIMATE NORMAL; TARGET CELLS 2+
[2018-03-11 15:33] LABS: HYPOCHROMASIA 1+; POLYCHROMASIA 1+
[2018-03-11 15:34] LABS: MAGNESIUM 2.2 MG/DL (1.5-2.4); PHOSPHORUS 4.4 MG/DL (2.3-4.5); TROPONIN I < 0.04 NG/ML (0.0-0.05)
[2018-03-11] MEDS ORDERED: normal saline 1000ml 1,000 ML IV SCH (16:39)
[2018-03-11] MEDS ORDERED: magnesium hydroxide 30ml (MOM) UD suspension PO PRN (16:40)
[2018-03-11] MEDS ORDERED: mag hydrox/Alum hydrox/simeth 30ml oral suspension PO PRN (16:40)
[2018-03-11] MEDS ORDERED: acetaminophen 325mg tablet PO PRN (16:40)
[2018-03-11] MEDS ORDERED: ondansetron/PF 4mg/2ml inj IV PRN (16:40)
[2018-03-11] MEDS ORDERED: HYDROcodone/acetaminophen 5mg/325mg tablet PO PRN (16:40)
[2018-03-11] MEDS ORDERED: morphine 2 MG/ML inj. syringe IV PRN ×2 (16:40)
[2018-03-11 17:23] LABS: INR 1.1 INR; PARTIAL THROMBOPLASTIN TIME 27 SECONDS (22-32); PROTHROMBIN TIME 10.7 SECONDS (9.0-12.0)
[2018-03-11] MEDS ORDERED: glucagon, human recombinant 1mg kit SUBCUT PRN (19:45)
[2018-03-11] MEDS ORDERED: MESSAGE TO PHARMACY PO ONE (19:45)
[2018-03-11] MEDS ORDERED: dextrose ORAL solution 15 GM/59 ML bottle PO PRN (19:45)
[2018-03-11] MEDS ORDERED: dextrose 50%-water 50ml dispensing syringe IV PRN ×2 (19:45)
[2018-03-11 20:45] VITALS: BP 137/54
[2018-03-11] MEDS: insulin glargine (Lantus) pen - multi-dose SQ SCH (21:00)
[2018-03-11] MEDS: vancomycin 125mg/5ml ORAL solution 5ml UD bottle PO SCH (22:25)
[2018-03-11] MEDS: furosemide 40mg/4ml inj IV SCH (22:26)
[2018-03-11 22:47] LABS: OCCULT BLOOD STOOL POSITIVE (Neg)
[2018-03-12] VITALS: BP 119/53
[2018-03-12] MEDS: vancomycin 125mg/5ml ORAL solution 5ml UD bottle PO SCH ×4 (03:03→19:30)
[2018-03-12 07:27] VITALS: BP 145/71
[2018-03-12] MEDS: furosemide 40mg/4ml inj IV SCH ×2 (07:40→19:32)
[2018-03-12 11:11] LABS: BASOPHILS % (AUTO) 0 % (0-1); EOSINOPHILS # (AUTO) 0.3 X10'3 (0-0.9); EOSINOPHILS % (AUTO) 1.7 % (0-6); HEMOGLOBIN 8.4 g/dl (12.0-16.0); LYMPHOCYTES # (AUTO) 0.9 X10'3 (1.1-4.8); MEAN CORPUSCULAR HEMOGLOBIN 22.9 PG (27.0-31.0); MEAN PLATELET VOLUME 9.2 FL (7.4-10.4); MONOCYTES # (AUTO) 1.2 X10'3 (0-0.9); MONOCYTES % (AUTO) 6.5 % (2-12); NEUTROPHILS # (AUTO) 16.3 X10'3 (1.8-7.7); NEUTROPHILS % (AUTO) 86.8 % (42-75); PLATELET COUNT 312 X10'3 (140-440); RED BLOOD COUNT 3.65 X10'6 (4.20-5.60); WHITE BLOOD COUNT 18.8 X10'3 (4.5-11.0)
[2018-03-12] MEDS: normal saline 1000ml 1,000 ML IV SCH (11:21)
[2018-03-12 12:08] LABS: ALANINE AMINOTRANSFERASE 14 U/L (12-78); ALBUMIN 1.5 G/DL (3.4-5.0); ALBUMIN/GLOBULIN RATIO 0.4 (1.1-1.5); ALKALINE PHOSPHATASE 118 IU/L (46-116); ANION GAP 11 (8-16); ASPARTATE AMINO TRANSFERASE 18 U/L (10-37); BILIRUBIN,TOTAL 0.5 MG/DL (0.1-1.0); BLOOD UREA NITROGEN 84 MG/DL (7-18); CALCIUM 7.7 MG/DL (8.5-10.1); CHLORIDE 106 MMOL/L (99-107); CREATININE 2.27 MG/DL (0.40-0.90); GLUCOSE 219 MG/DL (70-104); PHOSPHORUS 4.4 MG/DL (2.3-4.5); SODIUM 140 MMOL/L (135-145); TOTAL CARBON DIOXIDE 22.9 MMOL/L (24-32); TOTAL PROTEIN 4.9 G/DL (6.4-8.2); eGFR 25 ML/MIN
[2018-03-12 12:33] VITALS: BP 151/57
[2018-03-12] MEDS: insulin Lispro (HumaLOG) vial - multi-dose SQ SCH ×2 (13:02→19:13)
[2018-03-12] MEDS: metroNIDAZOLE-Flagyl 500mg/NS 100 ML IV SCH (16:15)
[2018-03-12 16:26] LABS: C DIFF ANTIGEN NEGATIVE (NEGATIVE); C DIFF SPECIMEN=DIARRHEA? ACCEPTABLE; C DIFFICILE TOXINS A&B NEGATIVE (Neg)
[2018-03-12] MEDS ORDERED: MULT-38 PO (16:32)
[2018-03-12] MEDS ORDERED: IPRA3AMP9 IH (16:32)
[2018-03-12] MEDS ORDERED: LACTC PO (16:32)
[2018-03-12] MEDS ORDERED: CLON0.2T PO (16:32)
[2018-03-12] MEDS ORDERED: PRED5TAB PO (16:33)
[2018-03-12] MEDS: levoFLOXACIN-Levaquin 500mg/D5 100 ML IV SCH (17:53)
[2018-03-12] MEDS: ipratropium/albuterol 3ml nebule IH SCH (19:00)
[2018-03-12] MEDS: metoprolol tartrate 50mg tablet PO SCH (19:30)
[2018-03-12] MEDS: lactobacillus rhamnosus 10,000 MMU CELLS/CAPSULE PO SCH (19:32)
[2018-03-12] MEDS ORDERED: non-formulary drug (Lactobacillus Acidophilus (ACIDOPHILUS capsule) 1 CAP) PO SCH (20:00)
[2018-03-12 20:05] VITALS: BP 173/58
[2018-03-12] MEDS: cloNIDine 0.1 mg tablet PO SCH (21:43)
[2018-03-12] MEDS: insulin glargine (Lantus) pen - multi-dose SQ SCH (21:48)
[2018-03-13] VITALS: BP 149/52
[2018-03-13] MEDS: metroNIDAZOLE-Flagyl 500mg/NS 100 ML IV SCH ×4 (00:25→15:36)
[2018-03-13] MEDS: vancomycin 125mg/5ml ORAL solution 5ml UD bottle PO SCH ×2 (02:12→08:13)
[2018-03-13] MEDS: ipratropium/albuterol 3ml nebule IH SCH ×7 (02:25→23:29)
[2018-03-13] MEDS: normal saline 1000ml 1,000 ML IV SCH (05:35)
[2018-03-13] MEDS: furosemide 40mg/4ml inj IV SCH ×2 (08:13→22:04)
[2018-03-13] MEDS: lactobacillus rhamnosus 10,000 MMU CELLS/CAPSULE PO SCH ×2 (08:13→22:06)
[2018-03-13] MEDS: cloNIDine 0.1 mg tablet PO SCH ×3 (08:13→22:05)
[2018-03-13] MEDS: metoprolol tartrate 50mg tablet PO SCH ×2 (08:13→22:06)
[2018-03-13 08:31] VITALS: BP 161/50
[2018-03-13 09:53] LABS: ALBUMIN 1.3 G/DL (3.4-5.0); ANION GAP 4 (8-16); BLOOD UREA NITROGEN 76 MG/DL (7-18); BUN/CREATININE RATIO 36.2 (6.6-38.0); CALCIUM 7.8 MG/DL (8.5-10.1); CHLORIDE 109 MMOL/L (99-107); GLUCOSE 125 MG/DL (70-104); POTASSIUM 4.4 MMOL/L (3.5-5.1); SODIUM 143 MMOL/L (135-145); TOTAL CARBON DIOXIDE 29.7 MMOL/L (24-32); eGFR 27 ML/MIN
[2018-03-13] MEDS: levoFLOXACIN-Levaquin 500mg/D5 100 ML IV SCH (10:03)
[2018-03-13 10:20] LABS: BASOPHILS # (AUTO) 0.1 X10'3 (0-0.2); BASOPHILS % (AUTO) 0.4 % (0-1); EOSINOPHILS # (AUTO) 0.6 X10'3 (0-0.9); EOSINOPHILS % (AUTO) 3.9 % (0-6); HEMATOCRIT 23.7 % (35.0-45.0); HEMOGLOBIN 7.5 g/dl (12.0-16.0); LYMPHOCYTES # (AUTO) 0.8 X10'3 (1.1-4.8); LYMPHOCYTES % (AUTO) 4.9 % (21-51); MEAN CORPUSCULAR HEMOGLOBIN 23.2 PG (27.0-31.0); MEAN CORPUSCULAR HGB CONC 31.8 % (33.0-36.5); MEAN CORPUSCULAR VOLUME 72.9 FL (78-98); MEAN PLATELET VOLUME 8.4 FL (7.4-10.4); MONOCYTES # (AUTO) 1.2 X10'3 (0-0.9); MONOCYTES % (AUTO) 7.6 % (2-12); NEUTROPHILS # (AUTO) 13.1 X10'3 (1.8-7.7); NEUTROPHILS % (AUTO) 83.2 % (42-75); PLATELET COUNT 309 X10'3 (140-440); RED BLOOD COUNT 3.24 X10'6 (4.20-5.60); RED CELL DISTRIBUTION WIDTH 23.7 % (11.5-14.5); WHITE BLOOD COUNT 15.7 X10'3 (4.5-11.0)
[2018-03-13 10:45] LABS: ANISOCYTOSIS 3+; PLATELET ESTIMATE NORMAL; TOTAL CELLS COUNTED 100
[2018-03-13 10:46] LABS: HYPOCHROMASIA 1+; TARGET CELLS 1+
[2018-03-13 10:47] LABS: MICROCYTOSIS 1+
[2018-03-13 12:31] VITALS: BP 117/57
[2018-03-13 14:40] VITALS: BP_SYST 177; BP_SYST 61; BP_DIAS 38; BP_DIAS 62
[2018-03-13 20:00] VITALS: BP 163/56
[2018-03-13] MEDS: insulin glargine (Lantus) pen - multi-dose SQ SCH (22:03)
[2018-03-14] VITALS: BP 145/52
[2018-03-14] MEDS: metroNIDAZOLE-Flagyl 500mg/NS 100 ML IV SCH ×3 (02:09→16:12)
[2018-03-14] MEDS: normal saline 1000ml 1,000 ML IV SCH ×2 (02:10→22:33)
[2018-03-14] MEDS: ipratropium/albuterol 3ml nebule IH SCH ×6 (03:00→23:35)
[2018-03-14 06:40] LABS: BASOPHILS # (AUTO) 0.1 X10'3 (0-0.2); BASOPHILS % (AUTO) 0.4 % (0-1); EOSINOPHILS % (AUTO) 5.9 % (0-6); HEMATOCRIT 22.2 % (35.0-45.0); HEMOGLOBIN 7.2 g/dl (12.0-16.0); LYMPHOCYTES % (AUTO) 6.4 % (21-51); MEAN CORPUSCULAR HEMOGLOBIN 23.5 PG (27.0-31.0); MEAN CORPUSCULAR HGB CONC 32.4 % (33.0-36.5); MEAN CORPUSCULAR VOLUME 72.6 FL (78-98); MONOCYTES # (AUTO) 0.9 X10'3 (0-0.9); MONOCYTES % (AUTO) 5.5 % (2-12); NEUTROPHILS # (AUTO) 13.3 X10'3 (1.8-7.7); NEUTROPHILS % (AUTO) 81.8 % (42-75); PLATELET COUNT 290 X10'3 (140-440); RED BLOOD COUNT 3.06 X10'6 (4.20-5.60); RED CELL DISTRIBUTION WIDTH 23.9 % (11.5-14.5); WHITE BLOOD COUNT 16.3 X10'3 (4.5-11.0)
[2018-03-14 06:49] LABS: ALBUMIN 1.2 G/DL (3.4-5.0); ANION GAP 6 (8-16); BLOOD UREA NITROGEN 73 MG/DL (7-18); BUN/CREATININE RATIO 36.3 (6.6-38.0); CALCIUM 7.7 MG/DL (8.5-10.1); CHLORIDE 109 MMOL/L (99-107); CREATININE 2.01 MG/DL (0.40-0.90); GLUCOSE 109 MG/DL (70-104); POTASSIUM 4.3 MMOL/L (3.5-5.1); SODIUM 143 MMOL/L (135-145); TOTAL CARBON DIOXIDE 28.5 MMOL/L (24-32); eGFR 29 ML/MIN
[2018-03-14 07:00] VITALS: BP 152/55
[2018-03-14 07:01] LABS: PLATELET ESTIMATE NORMAL
[2018-03-14 07:02] LABS: ANISOCYTOSIS 3+
[2018-03-14 07:04] LABS: HYPOCHROMASIA 1+; MICROCYTOSIS 1+; POLYCHROMASIA FEW; TARGET CELLS 3+
[2018-03-14 08:00] VITALS: BP 152/55
[2018-03-14] MEDS: lactobacillus rhamnosus 10,000 MMU CELLS/CAPSULE PO SCH ×2 (08:50→22:34)
[2018-03-14] MEDS: furosemide 40mg/4ml inj IV SCH ×2 (08:51→22:35)
[2018-03-14] MEDS: metoprolol tartrate 50mg tablet PO SCH ×2 (08:51→22:35)
[2018-03-14] MEDS: cloNIDine 0.1 mg tablet PO SCH ×3 (08:51→22:34)
[2018-03-14 12:45] VITALS: BP 115/42
[2018-03-14] MEDS ORDERED: furosemide 20 MG/2 ML vial IV ONE (13:45)
[2018-03-14] MEDS ORDERED: albumin (human) 25% 100ml IV 100 ML IV ONE (13:45)
[2018-03-14] MEDS: dextrose ORAL solution 15 GM/59 ML bottle PO PRN ×2 (17:13→17:30)
[2018-03-14 20:00] VITALS: BP 156/71
[2018-03-14] MEDS: insulin glargine (Lantus) pen - multi-dose SQ SCH (21:00)
[2018-03-15] VITALS: BP 150/72
[2018-03-15] MEDS: metroNIDAZOLE-Flagyl 500mg/NS 100 ML IV SCH ×3 (01:19→16:55)
[2018-03-15] MEDS: ipratropium/albuterol 3ml nebule IH SCH ×6 (03:00→23:20)
[2018-03-15 08:00] VITALS: BP 135/65
[2018-03-15] MEDS: furosemide 40mg/4ml inj IV SCH ×2 (08:04→20:17)
[2018-03-15] MEDS: lactobacillus rhamnosus 10,000 MMU CELLS/CAPSULE PO SCH ×2 (08:04→20:13)
[2018-03-15] MEDS: metoprolol tartrate 50mg tablet PO SCH ×2 (08:04→20:13)
[2018-03-15] MEDS: cloNIDine 0.1 mg tablet PO SCH ×3 (08:04→20:13)
[2018-03-15] MEDS: levoFLOXACIN-Levaquin 500mg/D5 100 ML IV SCH (09:14)
[2018-03-15 10:00] LABS: BASOPHILS % (AUTO) 0.1 % (0-1); EOSINOPHILS # (AUTO) 0.9 X10'3 (0-0.9); EOSINOPHILS % (AUTO) 6.4 % (0-6); HEMATOCRIT 22.4 % (35.0-45.0); HEMOGLOBIN 7.1 g/dl (12.0-16.0); LYMPHOCYTES # (AUTO) 0.6 X10'3 (1.1-4.8); LYMPHOCYTES % (AUTO) 4.1 % (21-51); MEAN CORPUSCULAR HEMOGLOBIN 23.1 PG (27.0-31.0); MEAN CORPUSCULAR HGB CONC 31.5 % (33.0-36.5); MEAN CORPUSCULAR VOLUME 73.3 FL (78-98); MEAN PLATELET VOLUME 7.8 FL (7.4-10.4); MONOCYTES # (AUTO) 0.4 X10'3 (0-0.9); MONOCYTES % (AUTO) 3.2 % (2-12); NEUTROPHILS # (AUTO) 12.1 X10'3 (1.8-7.7); NEUTROPHILS % (AUTO) 86.2 % (42-75); PLATELET COUNT 262 X10'3 (140-440); RED BLOOD COUNT 3.06 X10'6 (4.20-5.60); RED CELL DISTRIBUTION WIDTH 24.8 % (11.5-14.5)
[2018-03-15 10:11] LABS: ALBUMIN 1.7 G/DL (3.4-5.0); ANION GAP 7 (8-16); BLOOD UREA NITROGEN 66 MG/DL (7-18); CALCIUM 7.7 MG/DL (8.5-10.1); CHLORIDE 108 MMOL/L (99-107); CREATININE 1.94 MG/DL (0.40-0.90); GLUCOSE 191 MG/DL (70-104); SODIUM 142 MMOL/L (135-145); TOTAL CARBON DIOXIDE 26.6 MMOL/L (24-32); eGFR 30 ML/MIN
[2018-03-15 10:26] LABS: PLATELET ESTIMATE NORMAL
[2018-03-15 10:27] LABS: ANISOCYTOSIS 3+; TARGET CELLS 1+
[2018-03-15 10:40] LABS: SCHISTOCYTES FEW
[2018-03-15 12:15] VITALS: BP 138/63
[2018-03-15] MEDS ORDERED: albumin (human) 25% 100ml IV 100 ML IV ONE (13:35)
[2018-03-15] MEDS: insulin Lispro (HumaLOG) vial - multi-dose SQ SCH (13:43)
[2018-03-15] MEDS: normal saline 1000ml 1,000 ML IV SCH (17:35)
[2018-03-15 20:00] VITALS: BP_SYST 143; BP_SYST 153; BP_DIAS 63; BP_DIAS 80
[2018-03-15] MEDS: pantoprazole 40 MG vial IV SCH (20:09)
[2018-03-15] MEDS: insulin glargine (Lantus) pen - multi-dose SQ SCH (21:00)
[2018-03-16] VITALS: BP 146/71
[2018-03-16] MEDS: metroNIDAZOLE-Flagyl 500mg/NS 100 ML IV SCH ×3 (00:52→16:08)
[2018-03-16] MEDS: ipratropium/albuterol 3ml nebule IH SCH ×5 (03:00→20:32)
[2018-03-16] MEDS: normal saline 1000ml 1,000 ML IV SCH (05:31)
[2018-03-16 08:00] VITALS: BP 145/71
[2018-03-16] MEDS: pantoprazole 40 MG vial IV SCH ×2 (08:46→20:06)
[2018-03-16] MEDS: furosemide 40mg/4ml inj IV SCH ×2 (08:46→20:15)
[2018-03-16] MEDS: cloNIDine 0.1 mg tablet PO SCH ×3 (08:46→20:11)
[2018-03-16] MEDS: metoprolol tartrate 50mg tablet PO SCH ×2 (08:46→20:10)
[2018-03-16] MEDS: lactobacillus rhamnosus 10,000 MMU CELLS/CAPSULE PO SCH ×2 (08:46→20:10)
[2018-03-16] MEDS: insulin Lispro (HumaLOG) vial - multi-dose SQ SCH (09:17)
[2018-03-16 11:00] VITALS: BP 134/63
[2018-03-16 18:22] LABS: BASOPHILS % (AUTO) 0.1 % (0-1); EOSINOPHILS # (AUTO) 0.8 X10'3 (0-0.9); HEMATOCRIT 22.5 % (35.0-45.0); HEMOGLOBIN 7.1 g/dl (12.0-16.0); LYMPHOCYTES # (AUTO) 1.2 X10'3 (1.1-4.8); LYMPHOCYTES % (AUTO) 7.8 % (21-51); MEAN CORPUSCULAR HEMOGLOBIN 23.1 PG (27.0-31.0); MEAN CORPUSCULAR HGB CONC 31.4 % (33.0-36.5); MEAN CORPUSCULAR VOLUME 73.6 FL (78-98); MEAN PLATELET VOLUME 9.1 FL (7.4-10.4); MONOCYTES # (AUTO) 0.6 X10'3 (0-0.9); MONOCYTES % (AUTO) 3.5 % (2-12); NEUTROPHILS # (AUTO) 13.2 X10'3 (1.8-7.7); NEUTROPHILS % (AUTO) 83.6 % (42-75); PLATELET COUNT 290 X10'3 (140-440); RED BLOOD COUNT 3.06 X10'6 (4.20-5.60); RED CELL DISTRIBUTION WIDTH 25.3 % (11.5-14.5); WHITE BLOOD COUNT 15.8 X10'3 (4.5-11.0)
[2018-03-16 20:00] VITALS: BP 187/76
[2018-03-16] MEDS: ferrous sulfate ER tablet 140 MG TABLET.ER PO SCH (20:10)
[2018-03-16] MEDS: insulin glargine (Lantus) pen - multi-dose SQ SCH (21:00)
[2018-03-16 21:30] VITALS: BP 162/74
[2018-03-17] VITALS: BP 156/80
[2018-03-17] MEDS: metroNIDAZOLE-Flagyl 500mg/NS 100 ML IV SCH ×3 (01:39→15:54)
[2018-03-17] MEDS: normal saline 1000ml 1,000 ML IV SCH (05:47)
[2018-03-17 07:33] VITALS: BP 161/69
[2018-03-17] MEDS: ipratropium/albuterol 3ml nebule IH SCH ×3 (09:44→21:22)
[2018-03-17] MEDS: insulin Lispro (HumaLOG) vial - multi-dose SQ SCH (10:08)
[2018-03-17] MEDS: lactobacillus rhamnosus 10,000 MMU CELLS/CAPSULE PO SCH ×2 (10:17→20:01)
[2018-03-17] MEDS: cloNIDine 0.1 mg tablet PO SCH ×3 (10:17→21:05)
[2018-03-17] MEDS: metoprolol tartrate 50mg tablet PO SCH ×2 (10:17→20:01)
[2018-03-17] MEDS: ferrous sulfate ER tablet 140 MG TABLET.ER PO SCH ×2 (10:18→20:01)
[2018-03-17] MEDS: pantoprazole 40 MG vial IV SCH ×2 (10:18→20:01)
[2018-03-17] MEDS: furosemide 40mg/4ml inj IV SCH ×2 (10:19→20:01)
[2018-03-17] MEDS: levoFLOXACIN-Levaquin 500mg/D5 100 ML IV SCH (11:42)
[2018-03-17 12:17] VITALS: BP 153/63
[2018-03-17 19:00] VITALS: BP 163/78
[2018-03-17] MEDS ORDERED: lactulose 20gm/30ml cup PO ONE (20:00)
[2018-03-17] MEDS: docusate sod 100mg capsule PO SCH (20:01)
[2018-03-17] MEDS: insulin glargine (Lantus) pen - multi-dose SQ SCH (21:00)
[2018-03-18] VITALS (9 sets, daily range): BP systolic 149–188; BP diastolic 62–81
[2018-03-18] MEDS: metroNIDAZOLE-Flagyl 500mg/NS 100 ML IV SCH ×4 (01:45→16:52)
[2018-03-18] MEDS: normal saline 1000ml 1,000 ML IV SCH (05:22)
[2018-03-18] MEDS: ipratropium/albuterol 3ml nebule IH SCH ×2 (06:00→11:00)
[2018-03-18] MEDS: cloNIDine 0.1 mg tablet PO SCH ×3 (08:00→21:17)
[2018-03-18] MEDS: furosemide 40mg/4ml inj IV SCH ×2 (08:49→21:12)
[2018-03-18] MEDS: pantoprazole 40 MG vial IV SCH ×2 (08:49→20:57)
[2018-03-18] MEDS: docusate sod 100mg capsule PO SCH ×2 (08:53→21:17)
[2018-03-18] MEDS: lactobacillus rhamnosus 10,000 MMU CELLS/CAPSULE PO SCH ×2 (08:53→21:16)
[2018-03-18] MEDS: ferrous sulfate ER tablet 140 MG TABLET.ER PO SCH ×2 (08:53→21:16)
[2018-03-18] MEDS: metoprolol tartrate 50mg tablet PO SCH ×2 (08:54→21:16)
[2018-03-18] MEDS: insulin Lispro (HumaLOG) vial - multi-dose SQ SCH ×2 (09:36→12:59)
[2018-03-18 14:35] LABS: BASOPHILS % (AUTO) 0.1 % (0-1); EOSINOPHILS # (AUTO) 0.7 X10'3 (0-0.9); EOSINOPHILS % (AUTO) 5.4 % (0-6); HEMATOCRIT 23.7 % (35.0-45.0); HEMOGLOBIN 7.4 g/dl (12.0-16.0); LYMPHOCYTES # (AUTO) 0.9 X10'3 (1.1-4.8); MEAN CORPUSCULAR HEMOGLOBIN 23.2 PG (27.0-31.0); MEAN CORPUSCULAR HGB CONC 31.2 % (33.0-36.5); MEAN CORPUSCULAR VOLUME 74.3 FL (78-98); MEAN PLATELET VOLUME 8.2 FL (7.4-10.4); MONOCYTES # (AUTO) 0.8 X10'3 (0-0.9); MONOCYTES % (AUTO) 6.1 % (2-12); NEUTROPHILS # (AUTO) 10.6 X10'3 (1.8-7.7); NEUTROPHILS % (AUTO) 81.4 % (42-75); PLATELET COUNT 325 X10'3 (140-440); RED BLOOD COUNT 3.19 X10'6 (4.20-5.60); RED CELL DISTRIBUTION WIDTH 25.9 % (11.5-14.5)
[2018-03-18 14:44] LABS: ALBUMIN 1.6 G/DL (3.4-5.0); ANION GAP 9 (8-16); BLOOD UREA NITROGEN 50 MG/DL (7-18); BUN/CREATININE RATIO 28.1 (6.6-38.0); CHLORIDE 107 MMOL/L (99-107); CREATININE 1.78 MG/DL (0.40-0.90); SODIUM 143 MMOL/L (135-145); TOTAL CARBON DIOXIDE 26.6 MMOL/L (24-32); eGFR 33 ML/MIN
[2018-03-18 14:46] LABS: GLUCOSE 157 MG/DL (70-104)
[2018-03-18 14:51] LABS: ANISOCYTOSIS 3+; HYPOCHROMASIA 1+; MICROCYTOSIS 1+; PLATELET ESTIMATE NORMAL; POLYCHROMASIA FEW; SCHISTOCYTES 1+; SPHEROCYTES FEW; TARGET CELLS 1+
[2018-03-18] MEDS ORDERED: potassium Cl 20 mEq SR tablet PO PRN ×2 (15:10)
[2018-03-18] MEDS ORDERED: potassium Cl 40MEQ/NS 500ml 500 ML IV PRN ×2 (15:10)
[2018-03-18] MEDS: K and/or MAG REPLACEMENT MC SCH (15:10)
[2018-03-18] MEDS ORDERED: LIDOcaine 1% 30ml vial 5 ML in potassium Cl 40MEQ/NS 500ml 500 ML IV PRN (16:00)
[2018-03-18] MEDS ORDERED: potassium Cl oral solution 20 MEQ/15 ML PO PRN (18:40)
[2018-03-18] MEDS: ipratropium/albuterol 3ml nebule NEB SCH (20:06)
[2018-03-18] MEDS: potassium Cl oral solution 20 MEQ/15 ML PO PRN (20:55)
[2018-03-18] MEDS: insulin glargine (Lantus) pen - multi-dose SQ SCH (21:00)
[2018-03-19] VITALS (14 sets, daily range): BP systolic 129–161; BP diastolic 63–90
[2018-03-19] MEDS: potassium Cl oral solution 20 MEQ/15 ML PO PRN ×2 (00:47→04:47)
[2018-03-19] MEDS: metroNIDAZOLE-Flagyl 500mg/NS 100 ML IV SCH ×2 (00:57→08:50)
[2018-03-19] MEDS: normal saline 1000ml 1,000 ML IV SCH ×2 (01:35→10:03)
[2018-03-19] MEDS: K and/or MAG REPLACEMENT MC SCH (08:00)
[2018-03-19] MEDS: docusate sod 100mg capsule PO SCH ×3 (08:00→21:09)
[2018-03-19] MEDS: insulin Lispro (HumaLOG) vial - multi-dose SQ SCH ×2 (08:49→13:12)
[2018-03-19] MEDS: pantoprazole 40 MG vial IV SCH ×2 (08:50→20:00)
[2018-03-19] MEDS: furosemide 40mg/4ml inj IV SCH ×3 (08:50→23:43)
[2018-03-19] MEDS: lactobacillus rhamnosus 10,000 MMU CELLS/CAPSULE PO SCH ×2 (08:51→21:21)
[2018-03-19] MEDS: ferrous sulfate ER tablet 140 MG TABLET.ER PO SCH ×2 (08:52→21:20)
[2018-03-19] MEDS: metoprolol tartrate 50mg tablet PO SCH ×2 (08:52→21:21)
[2018-03-19] MEDS: cloNIDine 0.1 mg tablet PO SCH ×3 (08:52→21:20)
[2018-03-19] MEDS: ipratropium/albuterol 3ml nebule NEB SCH ×3 (09:00→19:57)
[2018-03-19 09:07] LABS: BASOPHILS # (AUTO) 0.1 X10'3 (0-0.2); BASOPHILS % (AUTO) 0.6 % (0-1); EOSINOPHILS # (AUTO) 0.7 X10'3 (0-0.9); HEMATOCRIT 32.1 % (35.0-45.0); HEMOGLOBIN 10.5 g/dl (12.0-16.0); LYMPHOCYTES # (AUTO) 0.8 X10'3 (1.1-4.8); LYMPHOCYTES % (AUTO) 5.5 % (21-51); MEAN CORPUSCULAR HEMOGLOBIN 25.8 PG (27.0-31.0); MEAN CORPUSCULAR HGB CONC 32.7 % (33.0-36.5); MEAN PLATELET VOLUME 7.7 FL (7.4-10.4); MONOCYTES # (AUTO) 0.9 X10'3 (0-0.9); MONOCYTES % (AUTO) 6.5 % (2-12); NEUTROPHILS # (AUTO) 11.7 X10'3 (1.8-7.7); NEUTROPHILS % (AUTO) 82.4 % (42-75); PLATELET COUNT 294 X10'3 (140-440); RED BLOOD COUNT 4.06 X10'6 (4.20-5.60); RED CELL DISTRIBUTION WIDTH 26.1 % (11.5-14.5); WHITE BLOOD COUNT 14.2 X10'3 (4.5-11.0)
[2018-03-19 09:23] LABS: ALBUMIN 1.7 G/DL (3.4-5.0); ANION GAP 9 (8-16); BLOOD UREA NITROGEN 49 MG/DL (7-18); BUN/CREATININE RATIO 27.5 (6.6-38.0); CALCIUM 7.5 MG/DL (8.5-10.1); CHLORIDE 109 MMOL/L (99-107); CREATININE 1.78 MG/DL (0.40-0.90); GLUCOSE 173 MG/DL (70-104); POTASSIUM 4.5 MMOL/L (3.5-5.1); SODIUM 143 MMOL/L (135-145); TOTAL CARBON DIOXIDE 25.2 MMOL/L (24-32); eGFR 33 ML/MIN
[2018-03-19 10:00] LABS: ANISOCYTOSIS 3+; PLATELET ESTIMATE NORMAL
[2018-03-19 10:01] LABS: HYPOCHROMASIA 1+
[2018-03-19] MEDS: levoFLOXACIN-Levaquin 500mg/D5 100 ML IV SCH (10:03)
[2018-03-19] MEDS: acetaZOLAMIDE IV 500mg inj IV SCH (15:37)
[2018-03-19 16:09] LABS: CLARITY,URINE CLEAR (Clear); COLOR,URINE YELLOW (Yellow); GLUCOSE, URINE NEGATIVE (Neg); KETONES,URINE NEGATIVE (Neg); LEUKOCYTE ESTERASE ,URINE NEGATIVE (Neg); NITRITES, URINE NEGATIVE (Neg); OCCULT BLOOD,URINE TRACE-INTACT (Neg); PROTEIN,URINE NEGATIVE (Neg); UROBILINOGEN,URINE 0.2 E.U/dL (0.2-1.0)
[2018-03-19 16:10] LABS: UA COLLECTION TYPE NON-SPECIFIED
[2018-03-19 16:17] LABS: SQUAMOUS EPITHELIAL CELL,UR MANY /LPF (FEW)
[2018-03-19 16:18] LABS: HYALINE CASTS 0-3 /LPF (NEGATIVE); YEAST MANY /HPF (NEGATIVE)
[2018-03-19 16:20] LABS: BACTERIA,URINE FEW /HPF (Neg); WBC,URINE 0-4 /HPF (0-4)
[2018-03-19 16:21] LABS: RBC,URINE NONE SEEN /HPF (0-2)
[2018-03-19] MEDS: insulin glargine (Lantus) pen - multi-dose SQ SCH (21:00)
[2018-03-19] MEDS: metolazone 2.5mg tablet PO SCH (21:20)
[2018-03-19] MEDS: spironolactone 50 MG tablet PO SCH (21:21)
[2018-03-20] VITALS (11 sets, daily range): BP systolic 135–170; BP diastolic 68–85
[2018-03-20 05:36] LABS: BASOPHILS % (AUTO) 0.2 % (0-1); EOSINOPHILS # (AUTO) 0.9 X10'3 (0-0.9); EOSINOPHILS % (AUTO) 6.6 % (0-6); HEMATOCRIT 30.7 % (35.0-45.0); LYMPHOCYTES # (AUTO) 0.9 X10'3 (1.1-4.8); LYMPHOCYTES % (AUTO) 6.3 % (21-51); MEAN CORPUSCULAR HGB CONC 32.5 % (33.0-36.5); MONOCYTES # (AUTO) 0.8 X10'3 (0-0.9); MONOCYTES % (AUTO) 5.5 % (2-12); NEUTROPHILS # (AUTO) 11.4 X10'3 (1.8-7.7); NEUTROPHILS % (AUTO) 81.4 % (42-75); PLATELET COUNT 261 X10'3 (140-440); RED BLOOD COUNT 3.83 X10'6 (4.20-5.60); RED CELL DISTRIBUTION WIDTH 26.9 % (11.5-14.5)
[2018-03-20 06:20] LABS: ANISOCYTOSIS 3+; PLATELET ESTIMATE NORMAL
[2018-03-20 06:21] LABS: HYPOGRANULAR PLATELETS MODERATE; MICROCYTOSIS 1+; TARGET CELLS 1+
[2018-03-20 06:22] LABS: RHEUM FACTOR QUAL REFLEX TITER POSITIVE (Neg)
[2018-03-20] MEDS: K and/or MAG REPLACEMENT MC SCH (08:00)
[2018-03-20] MEDS: lactobacillus rhamnosus 10,000 MMU CELLS/CAPSULE PO SCH ×2 (08:00→20:23)
[2018-03-20] MEDS: docusate sod 100mg capsule PO SCH ×2 (08:00→20:00)
[2018-03-20] MEDS: ferrous sulfate ER tablet 140 MG TABLET.ER PO SCH ×2 (08:37→20:23)
[2018-03-20] MEDS: spironolactone 50 MG tablet PO SCH ×2 (08:38→20:23)
[2018-03-20] MEDS: metoprolol tartrate 50mg tablet PO SCH ×2 (08:38→20:25)
[2018-03-20] MEDS: cloNIDine 0.1 mg tablet PO SCH ×3 (08:38→22:18)
[2018-03-20] MEDS: pantoprazole 40 MG vial IV SCH ×2 (08:47→20:23)
[2018-03-20] MEDS: metolazone 2.5mg tablet PO SCH ×2 (08:48→20:23)
[2018-03-20] MEDS: furosemide 40mg/4ml inj IV SCH ×2 (08:48→15:59)
[2018-03-20] MEDS: acetaZOLAMIDE IV 500mg inj IV SCH (08:50)
[2018-03-20] MEDS: ipratropium/albuterol 3ml nebule NEB SCH ×4 (09:00→21:35)
[2018-03-20] MEDS: insulin Lispro (HumaLOG) vial - multi-dose SQ SCH ×2 (09:27→13:27)
[2018-03-20 11:07] LABS: ALANINE AMINOTRANSFERASE 8 U/L (12-78); ALBUMIN 1.6 G/DL (3.4-5.0); ALBUMIN/GLOBULIN RATIO 0.5 (1.1-1.5); ALKALINE PHOSPHATASE 106 IU/L (46-116); ANION GAP 8 (8-16); ASPARTATE AMINO TRANSFERASE 11 U/L (10-37); BILIRUBIN,TOTAL 0.6 MG/DL (0.1-1.0); BLOOD UREA NITROGEN 47 MG/DL (7-18); BUN/CREATININE RATIO 26.3 (6.6-38.0); CALCIUM 7.6 MG/DL (8.5-10.1); CHLORIDE 109 MMOL/L (99-107); CREATININE 1.79 MG/DL (0.40-0.90); GLUCOSE 135 MG/DL (70-104); MAGNESIUM 1.5 MG/DL (1.5-2.4); PHOSPHORUS 2.8 MG/DL (2.3-4.5); POTASSIUM 3.8 MMOL/L (3.5-5.1); SODIUM 144 MMOL/L (135-145); TOTAL CARBON DIOXIDE 26.8 MMOL/L (24-32); TOTAL PROTEIN 5.1 G/DL (6.4-8.2); eGFR 33 ML/MIN
[2018-03-20] MEDS ORDERED: LIDOcaine 1% (10mg/ml) 2ml vial ONE (14:07)
[2018-03-20 14:53] LABS: RF TITER 20 IU/ml (Neg)
[2018-03-20] MEDS: insulin glargine (Lantus) pen - multi-dose SQ SCH (21:00)
[2018-03-21 00:45] VITALS: BP 144/76
[2018-03-21] MEDS: furosemide 40mg/4ml inj IV SCH ×3 (00:58→17:54)
[2018-03-21 05:47] LABS: BASOPHILS # (AUTO) 0.1 X10'3 (0-0.2); BASOPHILS % (AUTO) 0.4 % (0-1); EOSINOPHILS % (AUTO) 7.3 % (0-6); HEMATOCRIT 32.6 % (35.0-45.0); HEMOGLOBIN 10.3 g/dl (12.0-16.0); LYMPHOCYTES # (AUTO) 1.1 X10'3 (1.1-4.8); MEAN CORPUSCULAR HEMOGLOBIN 25.4 PG (27.0-31.0); MEAN CORPUSCULAR HGB CONC 31.7 % (33.0-36.5); MEAN CORPUSCULAR VOLUME 80.3 FL (78-98); MEAN PLATELET VOLUME 8.1 FL (7.4-10.4); MONOCYTES # (AUTO) 0.8 X10'3 (0-0.9); MONOCYTES % (AUTO) 6.4 % (2-12); NEUTROPHILS # (AUTO) 10.4 X10'3 (1.8-7.7); NEUTROPHILS % (AUTO) 77.9 % (42-75); PLATELET COUNT 278 X10'3 (140-440); RED BLOOD COUNT 4.05 X10'6 (4.20-5.60); RED CELL DISTRIBUTION WIDTH 27.1 % (11.5-14.5); WHITE BLOOD COUNT 13.3 X10'3 (4.5-11.0)
[2018-03-21 05:58] LABS: ALBUMIN 1.7 G/DL (3.4-5.0); ANION GAP 10 (8-16); BLOOD UREA NITROGEN 45 MG/DL (7-18); BUN/CREATININE RATIO 24.7 (6.6-38.0); CALCIUM 8.2 MG/DL (8.5-10.1); CHLORIDE 108 MMOL/L (99-107); CREATININE 1.82 MG/DL (0.40-0.90); MAGNESIUM 1.6 MG/DL (1.5-2.4); PHOSPHORUS 2.9 MG/DL (2.3-4.5); POTASSIUM 3.5 MMOL/L (3.5-5.1); SODIUM 146 MMOL/L (135-145); TOTAL CARBON DIOXIDE 28.1 MMOL/L (24-32); eGFR 32 ML/MIN
[2018-03-21 06:08] LABS: GLUCOSE 126 MG/DL (70-104)
[2018-03-21 07:27] LABS: ANTISTREPTOLYSIN O AB <20.0 IU/mL (0.0-200.0)
[2018-03-21 07:31] LABS: PLATELET ESTIMATE NORMAL
[2018-03-21 07:32] LABS: ANISOCYTOSIS 3+; HYPOCHROMASIA 1+; POLYCHROMASIA 1+; SCHISTOCYTES 1+; TARGET CELLS 1+
[2018-03-21 07:33] LABS: BURR CELLS 1+
[2018-03-21 07:36] VITALS: BP 161/73
[2018-03-21] MEDS: K and/or MAG REPLACEMENT MC SCH (08:00)
[2018-03-21 09:19] LABS: A/G RATIO 0.7 (0.7-1.7); BETA GLOBULIN 0.5 g/dL (0.7-1.3); GAMMA GLOBULIN 1.7 g/dL (0.4-1.8); M-SPIKE Not Observed g/dL (Not Observed)
[2018-03-21] MEDS: ipratropium/albuterol 3ml nebule NEB SCH ×2 (09:43→20:45)
[2018-03-21] MEDS: acetaZOLAMIDE IV 500mg inj IV SCH (10:12)
[2018-03-21] MEDS: pantoprazole 40 MG vial IV SCH ×2 (10:16→20:38)
[2018-03-21] MEDS: spironolactone 50 MG tablet PO SCH ×2 (10:17→20:00)
[2018-03-21] MEDS: metolazone 2.5mg tablet PO SCH ×2 (10:17→20:00)
[2018-03-21] MEDS: docusate sod 100mg capsule PO SCH ×2 (10:17→20:00)
[2018-03-21] MEDS: cloNIDine 0.1 mg tablet PO SCH ×3 (10:17→21:00)
[2018-03-21] MEDS: lactobacillus rhamnosus 10,000 MMU CELLS/CAPSULE PO SCH ×2 (10:17→20:00)
[2018-03-21] MEDS: ferrous sulfate ER tablet 140 MG TABLET.ER PO SCH ×2 (10:17→20:00)
[2018-03-21] MEDS: metoprolol tartrate 50mg tablet PO SCH ×2 (10:17→20:00)
[2018-03-21] MEDS: FLUoxetine 20mg capsule PO SCH (10:18)
[2018-03-21 11:38] VITALS: BP 149/74
[2018-03-21 13:12] VITALS: BP 149/74
[2018-03-21 18:00] VITALS: BP 157/82
[2018-03-21] MEDS: insulin glargine (Lantus) pen - multi-dose SQ SCH (21:00)
[2018-03-22] VITALS: BP 134/67
[2018-03-22] MEDS: furosemide 40mg/4ml inj IV SCH ×3 (00:25→17:24)
[2018-03-22 04:59] LABS: BASOPHILS # (AUTO) 0.1 X10'3 (0-0.2); BASOPHILS % (AUTO) 0.5 % (0-1); EOSINOPHILS % (AUTO) 7.3 % (0-6); HEMATOCRIT 30.4 % (35.0-45.0); HEMOGLOBIN 9.9 g/dl (12.0-16.0); LYMPHOCYTES % (AUTO) 7.9 % (21-51); MEAN CORPUSCULAR HEMOGLOBIN 25.9 PG (27.0-31.0); MEAN CORPUSCULAR HGB CONC 32.4 % (33.0-36.5); MEAN CORPUSCULAR VOLUME 79.9 FL (78-98); MEAN PLATELET VOLUME 8.1 FL (7.4-10.4); MONOCYTES # (AUTO) 0.8 X10'3 (0-0.9); MONOCYTES % (AUTO) 6.4 % (2-12); NEUTROPHILS # (AUTO) 10.1 X10'3 (1.8-7.7); NEUTROPHILS % (AUTO) 77.9 % (42-75); PLATELET COUNT 310 X10'3 (140-440); RED CELL DISTRIBUTION WIDTH 27.5 % (11.5-14.5)
[2018-03-22 05:08] LABS: ALBUMIN 1.7 G/DL (3.4-5.0); ANION GAP 10 (8-16); BLOOD UREA NITROGEN 46 MG/DL (7-18); BUN/CREATININE RATIO 25.4 (6.6-38.0); CALCIUM 8.4 MG/DL (8.5-10.1); CHLORIDE 107 MMOL/L (99-107); CREATININE 1.81 MG/DL (0.40-0.90); MAGNESIUM 1.5 MG/DL (1.5-2.4); PHOSPHORUS 3.4 MG/DL (2.3-4.5); POTASSIUM 3.1 MMOL/L (3.5-5.1); SODIUM 145 MMOL/L (135-145); eGFR 33 ML/MIN
[2018-03-22 05:25] LABS: ANTINUCLEAR ANTIBODIES Negative (Negative)
[2018-03-22 05:31] LABS: GLUCOSE 127 MG/DL (70-104)
[2018-03-22 06:28] LABS: ANISOCYTOSIS 3+; HYPOCHROMASIA 1+; LARGE PLATELETS FEW; MICROCYTOSIS 1+; PLATELET ESTIMATE NORMAL
[2018-03-22 06:29] LABS: SCHISTOCYTES FEW; TARGET CELLS FEW
[2018-03-22 07:45] VITALS: BP 151/77
[2018-03-22] MEDS: spironolactone 50 MG tablet PO SCH ×2 (07:45→20:34)
[2018-03-22] MEDS: pantoprazole 40 MG vial IV SCH ×2 (07:45→20:35)
[2018-03-22] MEDS: metolazone 2.5mg tablet PO SCH ×2 (07:46→20:34)
[2018-03-22] MEDS: FLUoxetine 20mg capsule PO SCH (08:00)
[2018-03-22] MEDS: K and/or MAG REPLACEMENT MC SCH (08:00)
[2018-03-22] MEDS: cloNIDine 0.1 mg tablet PO SCH ×3 (08:00→20:35)
[2018-03-22] MEDS: docusate sod 100mg capsule PO SCH ×2 (08:00→20:00)
[2018-03-22] MEDS: metoprolol tartrate 50mg tablet PO SCH ×2 (08:00→20:35)
[2018-03-22] MEDS: lactobacillus rhamnosus 10,000 MMU CELLS/CAPSULE PO SCH ×2 (08:00→20:00)
[2018-03-22] MEDS: ferrous sulfate ER tablet 140 MG TABLET.ER PO SCH ×2 (08:00→20:34)
[2018-03-22] MEDS: ipratropium/albuterol 3ml nebule NEB SCH ×3 (08:17→21:25)
[2018-03-22] MEDS ORDERED: magnesium 1gm/100ml D5W IVPB 100 ML IV PRN (09:40)
[2018-03-22] MEDS ORDERED: magnesium Cl slow-release 64mg tablet PO PRN (09:40)
[2018-03-22] MEDS ORDERED: magnesium 4gm in 100ml NS 100 ML IV PRN (09:40)
[2018-03-22] MEDS ORDERED: potassium Cl 40MEQ/NS 500ml 500 ML IV PRN ×2 (09:40)
[2018-03-22] MEDS ORDERED: potassium Cl 20 mEq SR tablet PO PRN ×2 (09:40)
[2018-03-22] MEDS: acetaZOLAMIDE IV 500mg inj IV SCH (10:02)
[2018-03-22 11:46] VITALS: BP 151/72
[2018-03-22 19:15] VITALS: BP 140/70
[2018-03-22] MEDS: insulin glargine (Lantus) pen - multi-dose SQ SCH (21:00)
[2018-03-22 23:57] VITALS: BP 115/78
[2018-03-23] MEDS: furosemide 40mg/4ml inj IV SCH ×3 (00:18→16:56)
[2018-03-23 05:45] LABS: ALANINE AMINOTRANSFERASE 7 U/L (12-78); ALBUMIN 1.6 G/DL (3.4-5.0); ALBUMIN/GLOBULIN RATIO 0.4 (1.1-1.5); ALKALINE PHOSPHATASE 80 IU/L (46-116); ANION GAP 9 (8-16); BILIRUBIN,TOTAL 0.6 MG/DL (0.1-1.0); BLOOD UREA NITROGEN 44 MG/DL (7-18); BUN/CREATININE RATIO 24.9 (6.6-38.0); CALCIUM 8.7 MG/DL (8.5-10.1); CHLORIDE 106 MMOL/L (99-107); CREATININE 1.77 MG/DL (0.40-0.90); MAGNESIUM 1.5 MG/DL (1.5-2.4); SODIUM 143 MMOL/L (135-145); TOTAL CARBON DIOXIDE 27.9 MMOL/L (24-32); TOTAL PROTEIN 5.8 G/DL (6.4-8.2); eGFR 33 ML/MIN
[2018-03-23 05:46] LABS: ASPARTATE AMINO TRANSFERASE 34 U/L (10-37); GLUCOSE 130 MG/DL (70-104); PHOSPHORUS 3.9 MG/DL (2.3-4.5); POTASSIUM 4.6 MMOL/L (3.5-5.1)
[2018-03-23 07:22] VITALS: BP 141/64
[2018-03-23] MEDS: docusate sod 100mg capsule PO SCH ×2 (08:00→20:52)
[2018-03-23] MEDS: K and/or MAG REPLACEMENT MC SCH (08:00)
[2018-03-23] MEDS: lactobacillus rhamnosus 10,000 MMU CELLS/CAPSULE PO SCH ×2 (08:00→20:42)
[2018-03-23] MEDS: ferrous sulfate ER tablet 140 MG TABLET.ER PO SCH ×2 (08:00→20:41)
[2018-03-23] MEDS: FLUoxetine 20mg capsule PO SCH (08:00)
[2018-03-23] MEDS: ipratropium/albuterol 3ml nebule NEB SCH ×3 (08:27→20:52)
[2018-03-23] MEDS: pantoprazole 40 MG vial IV SCH ×2 (08:48→20:40)
[2018-03-23] MEDS: acetaZOLAMIDE IV 500mg inj IV SCH (08:49)
[2018-03-23] MEDS: spironolactone 50 MG tablet PO SCH ×2 (08:59→20:41)
[2018-03-23] MEDS: metolazone 2.5mg tablet PO SCH ×2 (09:00→20:41)
[2018-03-23] MEDS: metoprolol tartrate 50mg tablet PO SCH ×2 (09:07→20:41)
[2018-03-23] MEDS: cloNIDine 0.1 mg tablet PO SCH ×3 (09:08→20:41)
[2018-03-23 12:05] VITALS: BP 142/60
[2018-03-23 19:00] VITALS: BP 147/75
[2018-03-23] MEDS: insulin glargine (Lantus) pen - multi-dose SQ SCH (21:00)
[2018-03-23 23:00] VITALS: BP 131/62
[2018-03-24] MEDS: furosemide 40mg/4ml inj IV SCH ×2 (00:28→09:23)
[2018-03-24 07:00] VITALS: BP 141/59
[2018-03-24] MEDS: ipratropium/albuterol 3ml nebule NEB SCH ×2 (07:39→13:25)
[2018-03-24] MEDS: K and/or MAG REPLACEMENT MC SCH (08:00)
[2018-03-24] MEDS: pantoprazole 40 MG vial IV SCH (09:23)
[2018-03-24] MEDS: acetaZOLAMIDE IV 500mg inj IV SCH (09:23)
[2018-03-24] MEDS: ferrous sulfate ER tablet 140 MG TABLET.ER PO SCH (09:23)
[2018-03-24] MEDS: spironolactone 50 MG tablet PO SCH (09:24)
[2018-03-24] MEDS: metolazone 2.5mg tablet PO SCH (09:24)
[2018-03-24] MEDS: cloNIDine 0.1 mg tablet PO SCH ×2 (09:24→12:26)
[2018-03-24] MEDS: metoprolol tartrate 50mg tablet PO SCH (09:24)
[2018-03-24] MEDS: FLUoxetine 20mg capsule PO SCH (09:24)
[2018-03-24] MEDS: lactobacillus rhamnosus 10,000 MMU CELLS/CAPSULE PO SCH (09:24)
[2018-03-24] MEDS: docusate sod 100mg capsule PO SCH (09:24)
[2018-03-24 11:24] LABS: BASOPHILS # (AUTO) 0.1 X10'3 (0-0.2); BASOPHILS % (AUTO) 0.7 % (0-1); EOSINOPHILS % (AUTO) 8.7 % (0-6); HEMATOCRIT 30.6 % (35.0-45.0); HEMOGLOBIN 9.9 g/dl (12.0-16.0); LYMPHOCYTES # (AUTO) 0.7 X10'3 (1.1-4.8); LYMPHOCYTES % (AUTO) 6.4 % (21-51); MEAN CORPUSCULAR HEMOGLOBIN 25.8 PG (27.0-31.0); MEAN CORPUSCULAR HGB CONC 32.1 % (33.0-36.5); MEAN CORPUSCULAR VOLUME 80.1 FL (78-98); MEAN PLATELET VOLUME 7.8 FL (7.4-10.4); MONOCYTES # (AUTO) 0.8 X10'3 (0-0.9); MONOCYTES % (AUTO) 6.8 % (2-12); NEUTROPHILS # (AUTO) 8.6 X10'3 (1.8-7.7); NEUTROPHILS % (AUTO) 77.4 % (42-75); PLATELET COUNT 330 X10'3 (140-440); RED BLOOD COUNT 3.82 X10'6 (4.20-5.60); RED CELL DISTRIBUTION WIDTH 27.6 % (11.5-14.5); WHITE BLOOD COUNT 11.2 X10'3 (4.5-11.0)
[2018-03-24 11:38] LABS: ALBUMIN 1.7 G/DL (3.4-5.0); ANION GAP 10 (8-16); BLOOD UREA NITROGEN 40 MG/DL (7-18); CALCIUM 8.6 MG/DL (8.5-10.1); CHLORIDE 104 MMOL/L (99-107); CREATININE 1.82 MG/DL (0.40-0.90); MAGNESIUM 1.5 MG/DL (1.5-2.4); PHOSPHORUS 3.4 MG/DL (2.3-4.5); SODIUM 143 MMOL/L (135-145); TOTAL CARBON DIOXIDE 29.3 MMOL/L (24-32); eGFR 32 ML/MIN
[2018-03-24 11:42] LABS: GLUCOSE 180 MG/DL (70-104)
[2018-03-24 11:43] LABS: PLATELET ESTIMATE NORMAL; POTASSIUM 2.9 MMOL/L (3.5-5.1)
[2018-03-24 11:44] LABS: ANISOCYTOSIS 3+; HYPOCHROMASIA 1+; MICROCYTOSIS 1+; SCHISTOCYTES FEW; TARGET CELLS 1+; TEAR DROP CELLS FEW
[2018-03-24] MEDS ORDERED: potassium Cl 20 mEq SR tablet PO STA ×2 (11:57→12:06)
[2018-03-24 12:02] VITALS: BP 145/68
[2018-03-24] MEDS ORDERED: potassium Cl oral solution 20 MEQ/15 ML PO PRN ×2 (12:20)
[2018-03-24] MEDS: potassium Cl oral solution 20 MEQ/15 ML PO STA ×2 (12:31→13:12)
[2018-03-24] MEDS ORDERED: potassium Cl oral solution 20 MEQ/15 ML PO ONE ×2 (13:00→13:10)
== END 2018-03-24 13:55 | DRG 853 ==
LOC: ER 12:44 → ED HOLD 16:39 → SUR 3N 20:30
PROVIDERS: ADMIT Internal Medicine; ATTEND Internal Medicine
PROC: 30233N1 Transfusion of Nonautologous Red Blood Cells into Peripheral Vein, Percutaneous Approach (ICD-10-PCS; principal; 2018-03-18)
PROC: 30233N1 Transfusion of Nonautologous Red Blood Cells into Peripheral Vein, Percutaneous Approach (ICD-10-PCS; 2018-03-19)
PROC: 0W9F3ZX Drainage of Abdominal Wall, Percutaneous Approach, Diagnostic (ICD-10-PCS; 2018-03-20)
DX: A41.9 Sepsis, unspecified organism (principal); E43 Unspecified severe protein-calorie malnutrition; N17.9 Acute kidney failure, unspecified; I13.0 Hypertensive heart and chronic kidney disease with heart failure and stage 1 through stage 4 chronic kidney disease, or unspecified chronic kidney disease; R18.8 Other ascites; K92.2 Gastrointestinal hemorrhage, unspecified; E87.5 Hyperkalemia; E88.09 Other disorders of plasma-protein metabolism, not elsewhere classified; N18.9 Chronic kidney disease, unspecified; E11.22 Type 2 diabetes mellitus with diabetic chronic kidney disease; D50.0 Iron deficiency anemia secondary to blood loss (chronic); E87.6 Hypokalemia; N73.9 Female pelvic inflammatory disease, unspecified; I50.9 Heart failure, unspecified; E66.01 Morbid (severe) obesity due to excess calories; G89.29 Other chronic pain; Z51.5 Encounter for palliative care; Z79.899 Other long term (current) drug therapy; Z68.37 Body mass index [BMI] 37.0-37.9, adult; Z86.19 Personal history of other infectious and parasitic diseases
CPT/HCPCS: 10030; 36415; 70450; 71045; 74176; 76775; 76942; 80048; 80053; 80069; 81001; 82272; 82948; 83036; 83605; 83735; 83880; 84100; 84145; 84155; 84165; 84439; 84443; 84484; 85025; 85610; 85651; 85730; 86038; 86060; 86430; 86431; 86885; 86900; 86901; 86920; 87040; 87045; 87046; 87070; 87324; 87449; 89055; 93005; 93306; 94640; 94760; 96374; 97110; 97161; 97530; 99285; C9113; G0378; J1120; J1815; J1940; J1956; J2405; J3370; J3480; J3490; J7030; P9016; P9047